=== PATIENT | male | born 1940 | race Caucasian/White ===

== ENCOUNTER 2021-02-03 14:23 | Inpatient (IN) | payer MEDICARE, OTHER ==
[~2021-02-03] VITALS: Ht 180.3 cm; Wt 75.4 kg
[~2021-02-03 14:23] MED LIST: ALBU6.7H9 INH; ALBU8.5H8 IH; ATOR40TA PO; DIGO125T PO; DOCU100C36 PO; FOLI1TAB16 PO; METO25TA20 PO; MULT-594 PO; NICO1PAT TD; OMEP40CA21 PO; RIVA10TA PO; SILV20CR13 TP; THIA100T13 PO
--- NOTE | 2021-02-03 14:33 | NUR ---
THE PATIENT [id number] HOME, SUDEN ONSET SOB 2 HOURS AGO. ALBUTEROL GIVEN WAISTBAND SETTER LOCKSTITCH. RESPIRATION REGULAR AND UNLABORED AT THIS TIME. ATTACHED TO THE MONITOR.
[2021-02-03] MEDS ORDERED: methylPREDNISolone SOD SUCC 125 MG/2ML VIAL ONE (14:50)
[2021-02-03] MEDS ORDERED: LORAZEPAM INJ 2 MG/ML VIAL ONE (14:51)
[2021-02-03] MEDS ORDERED: ALBUTEROL FS 2.5 MG/3 ML VIAL.NEB NEB ONE (15:00)
[2021-02-03] MEDS ORDERED: methylPREDNISolone SOD SUCC 125 MG/2ML VIAL IV ONE (15:00)
[2021-02-03] MEDS ORDERED: IPRATROPIUM NEB FS 0.5 MG/2.5 ML AMPUL.NEB NEB ONE (15:00)
[2021-02-03] MEDS ORDERED: LORAZEPAM INJ 2 MG/ML VIAL IV ONE (15:00)
[2021-02-03] MEDS ORDERED: ALBUTEROL FS 2.5 MG/3 ML VIAL.NEB ONE (15:13)
[2021-02-03] MEDS ORDERED: IPRATROPIUM NEB FS 0.5 MG/2.5 ML AMPUL.NEB ONE (15:13)
[2021-02-03 15:28] LABS: BASOPHILS # (AUTO) 0.1 K/uL (0.0-0.2); BASOPHILS % (AUTO) 1.1 % (0.0-2.0); EOSINOPHILS % (AUTO) 0.3 % (0.0-6.0); HEMATOCRIT 29 % (39-51); HEMOGLOBIN 9.2 g/dL (13.5-17.5); LYMPHOCYTES # (AUTO) 0.5 K/uL (0.8-4.8); LYMPHOCYTES % (AUTO) 9.3 % (20.0-44.0); MEAN CORPUSCULAR HGB CONC 32 g/dl (31.0-36.0); MEAN CORPUSCULAR VOLUME 84 fL (80-96); MONOCYTES # (AUTO) 0.5 K/uL (0.1-1.30); MONOCYTES % (AUTO) 9.2 % (2.0-12.0); NEUTROPHILS % (AUTO) 80.1 % (43.0-81.0); PLATELET COUNT (AUTO) 190 K/uL (150-450); RED BLOOD CELL COUNT(AUTO) 3.42 MIL/uL (4.5-6.0)
[2021-02-03] MEDS ORDERED: RYE1TABL PO (15:28)
[2021-02-03] MEDS ORDERED: CHOL200013 PO (15:28)
[2021-02-03] MEDS ORDERED: DULO60CA45 PO (15:28)
[2021-02-03] MEDS ORDERED: MELO-105 PO (15:28)
[2021-02-03] MEDS ORDERED: TIOT18CA3 IH (15:28)
[2021-02-03] MEDS ORDERED: SPIR25TA6 PO (15:28)
[2021-02-03] MEDS ORDERED: TRAZ-182 PO (15:28)
[2021-02-03] MEDS ORDERED: MOME13HF IH (15:28)
[2021-02-03] MEDS ORDERED: HYDR-500 PO (15:28)
[2021-02-03] MEDS ORDERED: MIDO5TAB4 PO (15:28)
[2021-02-03] MEDS ORDERED: FURO-145 PO (15:28)
[2021-02-03] MEDS ORDERED: ZINC220T4 PO (15:28)
[2021-02-03] MEDS ORDERED: ASCO100031 PO (15:28)
--- NOTE | 2021-02-03 15:30 | NUR ---
CALLED NURSING SUP FOR TELE BED.
[2021-02-03 15:53] LABS: CARBON DIOXIDE 23 mmol/L (21-32); CHLORIDE 99 mmol/L (98-107); CREATININE 1.1 mg/dL (0.6-1.3); GLUCOSE 141 mg/dL (74-106); SODIUM SERUM 135 mmol/L (136-145); UREA NITROGEN, BLOOD 12 mg/dL (7-18)
[2021-02-03 16:04] LABS: ALANINE AMINOTRANSFERASE 24 U/L (12-78); ALBUMIN 2.6 g/dL (3.4-5.0); ALKALINE PHOSPHATASE 121 U/L (46-116); ASPARTATE AMINOTRANSFERASE 41 U/L (15-37); BILIRUBIN,DIRECT 0.2 mg/dL (0.0-0.2); BILIRUBIN,TOTAL 0.7 mg/dL (0.2-1.0); TOTAL PROTEIN, SERUM 8.4 g/dL (6.4-8.2)
--- NOTE | 2021-02-03 16:28 | NUR ---
PAGED DR. HIRSCH.
[2021-02-03] MEDS ORDERED: CEFTRIAXONE 1GM BAG (ER ONLY) 1 GM/50 ML PIGGYBACK IV ONE (16:30)
[2021-02-03] MEDS ORDERED: AZITHROMYCIN 500 MG in IV D5W 250 ML IV ONE (16:30)
[2021-02-03] MEDS ORDERED: CEFTRIAXONE 1GM BAG (ER ONLY) 50 ML IV ONE (17:02)
--- NOTE | 2021-02-03 18:17 | NUR ---
COVID SWABS DONE AND SENT TO THE LAB
--- NOTE | 2021-02-03 18:17 | NUR ---
RAPID INFLUENZA SWAB DONE AND SENT TO THE LAB
[2021-02-03] MEDS ORDERED: MAG HYDROX/AL HYDROX/SIMETH 30 ML UDC PO PRN (18:30)
[2021-02-03] MEDS ORDERED: Z GUARD REMEDY 2 OZ OINT TP PRN (18:30)
[2021-02-03] MEDS ORDERED: MAGNESIUM HYDROXIDE 30 ML UDC PO PRN (18:30)
[2021-02-03] MEDS ORDERED: ONDANSETRON HCL/PF 4 MG/2 ML VIAL IVP PRN (18:30)
[2021-02-03] MEDS ORDERED: ACETAMINOPHEN 325 MG TABLET PO PRN (18:30)
--- NOTE | 2021-02-03 19:02 | NUR ---
THE PATIENT HAS POA AND COPY OF THE PAPERWORK IS IN THE CHART.
--- NOTE | 2021-02-03 20:37 | NUR ---
REUBEN FAN , [phone] POA
--- NOTE | 2021-02-03 20:49 | NUR ---
GAVE REPORT TO LOIS RENAE FOR EDNIA
[2021-02-03 21:00] VITALS: BP 144/97
--- NOTE | 2021-02-03 22:21 | NUR ---
Alyssia ABREU Notes Patient's blood sugar at 2220 was 153mg/dL. Addendum: 02/04/21 at 0301 by OC ALTMAN RN Disregard this note.
[2021-02-03] MEDS: ENOXAPARIN SODIUM 40 MG/0.4 ML DISP.SYRIN SQ SCH (23:21)
[2021-02-03] MEDS: methylPREDNISolone SOD SUCC 40 MG/ML VIAL IV SCH (23:21)
[2021-02-03] MEDS ORDERED: IPRATROPIUM NEB FS 0.5 MG/2.5 ML AMPUL.NEB NEB PRN (23:30)
[2021-02-03] MEDS ORDERED: ALBUTEROL FS 2.5 MG/3 ML VIAL.NEB NEB PRN (23:30)
[2021-02-03] MEDS: ZOLPIDEM TARTRATE 5 MG TABLET PO PRN (23:52)
[2021-02-04] VITALS (7 sets, daily range): BP systolic 107–147; BP diastolic 63–97
[2021-02-04] MEDS: IPRATROPIUM NEB FS 0.5 MG/2.5 ML AMPUL.NEB NEB SCH ×7 (00:12→23:13)
[2021-02-04] MEDS: ALBUTEROL FS 2.5 MG/3 ML VIAL.NEB NEB SCH ×4 (00:12→11:28)
[2021-02-04] MEDS ORDERED: DILTIAZEM HCL 50 MG IV IV ONE (02:00)
--- NOTE | 2021-02-04 02:30 | NUR ---
RN NOTES RECEIVED PT FROM 3 [facility] BED ACCOMPANIED BY 2 STAFF AND TRANSFERRED TO ROOM 117 #1. PT IS A/OX4; PT ON 3L OF O2 VIA NC TOLERATING WELL WITH RESPIRATIONS EVEN AND UNLABORED. COMPREHENSIVE PHYSICAL ASSESSMENT AND PATIENT CARE DONE. CALL LIGHT WITHIN REACH, SAFETY MEASURES AND ISOLATION PRECAUTION IN PLACE, WILL CONTINUE MONITOR AND ASSESS THROUGHOUT THE SHIFT. WILL CARRY OUT MD ORDERS ACCORDINGLY. BENCH PATTERNMAKER METAL MADE AWARE. Addendum: 02/04/21 at 0322 by MICHAEL WEINSTEIN RN CORRECTION PT IS ON 4L OF O2 VIA NC.
[2021-02-04] MEDS ORDERED: DILTIAZEM HCL 25 MG IV ONE ×2 (02:36→02:46)
--- NOTE | 2021-02-04 02:55 | NUR ---
RN NOTES @0253 CARDIZEM IV 5MG/1ML GIVEN ; MANUALLY ENTERED IN EMAR; PRICING MANAGER WELL AWARE. @0303 STARTED CARDIZEM DRIP IV 125MG IN 100NL NS WITH DOSE RATE OF 5MG/HR; MANUALLY ENTERED IN EMAR; PRICING MANAGER WELL AWARE. WILL CONTINUE TO MONITOR AND ASSESS THROUGHOUT THE SHIFT.
--- NOTE | 2021-02-04 03:02 | NUR ---
school supervisor Notes Patient was transferred to the [facility] unit. Patient was in no acute distress. Report was given to the [facility] Nurse Matias. CATHY Saenz was notified about the patient's new onset of red blood in the stool. CATHY saenz gave no orders. [facility] Nurse was made aware.
[2021-02-04] MEDS: DILTIAZEM HCL IV 125 MG in IV NS 0.9% 100 ML IV PRN (03:03)
--- NOTE | 2021-02-04 04:00 | NUR ---
RN NOTES NO NOTED CHANGES IN PATIENT CONDITION AT THIS TIME; NO SIGNS OF ACUTE RESPIRATORY DISTRESS. AM PATIENT CARE RENDERED. MANAGER INVESTMENT MADE AWARE. WILL CONTINUE TO MONITOR AND REASSESS FOR ANY CHANGES THROUGHOUT THE SHIFT.
[2021-02-04] MEDS: methylPREDNISolone SOD SUCC 40 MG/ML VIAL IV SCH ×3 (04:33→20:38)
[2021-02-04 07:01] LABS: BASOPHILS % (AUTO) 0.5 % (0.0-2.0); EOSINOPHILS % (AUTO) 0.1 % (0.0-6.0); HEMATOCRIT 27 % (39-51); HEMOGLOBIN 8.6 g/dL (13.5-17.5); LYMPHOCYTES # (AUTO) 0.2 K/uL (0.8-4.8); LYMPHOCYTES % (AUTO) 5.4 % (20.0-44.0); MEAN CORPUSCULAR HGB CONC 32 g/dl (31.0-36.0); MEAN CORPUSCULAR VOLUME 84 fL (80-96); MONOCYTES # (AUTO) 0.1 K/uL (0.1-1.30); MONOCYTES % (AUTO) 4.1 % (2.0-12.0); NEUTROPHILS # (AUTO) 2.6 K/uL (1.8-8.9); NEUTROPHILS % (AUTO) 89.9 % (43.0-81.0); PLATELET COUNT (AUTO) 171 K/uL (150-450); RED BLOOD CELL COUNT(AUTO) 3.18 MIL/uL (4.5-6.0); WHITE BLOOD COUNT (AUTO) 2.9 K/uL (4.3-11.0)
--- NOTE | 2021-02-04 07:01 | NUR ---
RN CLOSING NOTE: PATIENT REMAINS IN ROOM IN NO SIGNS OF RESPIRATORY DISTRESS, PATIENT STILL ON 4L OF 02 VIA NC;TOLERATING WELL SATURATING @ >92% SP02. STILL WITH ONGOING CARDIZEM DRIP @5MG/HR INFUSING WELL @ R AC#18. SAFETY MEASURES IMPLEMENTED, BED IN LOWEST POSITION, LOCKED, SIDE RAILS UP, CALL LIGHT WITHIN REACH. ALL NEEDS AND ORDERS ADDRESSED DURING THE SHIFT. IV ACCESS MAINTAINED INTACT, SECURED AND FLUSHING WELL. ALL DUE MEDS GIVEN ORDERED & SCHEDULED ; PATIENT TOLERATED WELL. PATIENT KEPT CLEAN AND COMFORTABLE WITHIN THE SHIFT. PATIENT ENDORSED TO INCOMING SHIFT RN WITH STABLE VITAL SIGN AND FOR CONTINUITY OF CARE, WILL ALSO INFORM AM SHIFT RN TO COLLECT SPECIMEN FOR OCCULT BLOOD; STOOL, SUPPLIES READY @ BEDSIDE. AM DYNAMICS AX SOLUTION ARCHITECT ALSO MADE AWARE. .
[2021-02-04] MEDS ORDERED: PANTOPRAZOLE 40 MG TABLET.DR PO SCH (07:30)
[2021-02-04 07:34] LABS: CREATININE 1.2 mg/dL (0.6-1.3); MAGNESIUM 2.3 mg/dL (1.8-2.4); PHOSPHORUS 3.4 mg/dL (2.5-4.9); POTASSIUM 4.4 mmol/L (3.5-5.1); THYROID STIMULATING HORMONE 0.659 uIU/mL (0.358-3.74)
--- NOTE | 2021-02-04 08:10 | NUR ---
RN note: Pt received alert awake oriented X 3. On 4 LPM O2 via NC, breathing distress with activity. Denies chest pain & discomfort. A-fib uncontrolled on tele monitor, Continue with cardizem drip as ordered. Ambulatory, steady gait. Safety measures observed. Encourage pt to use call light for assistance. Continue to monitor.
[2021-02-04] MEDS: PANTOPRAZOLE 40 MG VIAL IV SCH ×2 (08:27→17:24)
[2021-02-04] MEDS: NICOTINE PATCH (21MG) 21 MG PATCH.TD24 TD SCH (08:27)
[2021-02-04] MEDS ORDERED: AZITHROMYCIN 500 MG in IV D5W 250 ML IV SCH (09:00)
[2021-02-04] MEDS ORDERED: CEFTRIAXONE 1 G in IV D5W 50 ML IV SCH (09:00)
[2021-02-04] MEDS: CEFTRIAXONE 1 G in IV D5W 50 ML IV SCH (16:25)
[2021-02-04 16:39] LABS: OCCULT BLOOD STOOL POSITIVE (NEGATIVE)
[2021-02-04] MEDS: AZITHROMYCIN 500 MG in IV D5W 250 ML IV SCH (17:24)
--- NOTE | 2021-02-04 17:56 | NUR ---
RN Note: Spoke with Dr. Peter, regarding NPO status. OK to restart diet, If thoracentesis done. S/P rt thoracentesis with 1.5 l output. Pt tolerated well. Restart diet as ordered previously. Continue to monitor.
--- NOTE | 2021-02-04 19:25 | NUR ---
RN Note: Report given to stabilizing machine operator RN for continuity of care.
--- NOTE | 2021-02-04 19:30 | NUR ---
RN OPENING NOTES: RECEIVED PT A/OX4 IN BED RESTING COMFORTABLY. PATIENT IN NO S/SX OF ACUTE DISTRESS AT THIS TIME. NO SOB NOTED. PATIENT'S BREATHING IS EVEN AND UNLABORED. PATIENT IS ON 4L OF OXYGEN VIA NC; TOLERATING WELL. PATIENT ON TELE MONITORING READING SINUS HR IS @60s AT THE TIME OF RECEIVED. PATIENT ON CARDIAC DIET; TOLERATES WELL. NOTED IV SITE ON L FA #18 AND R AC#18 ; PATENT, INTACT AND FLUSHING WELL; NO S/S OF INFECTION OR INFILTRATION. PT ALSO HAS ALL SECURED AND INTACT NO SIGNS OF INFECTION. WITH ONGOING CARDIZEM DRIP @5MG/HR; INFUSING WELL. SAFETY MEASURES HAVE BEEN PROVIDED AND IMPLEMENTED. PATIENT BED ALARM IS ON. HEAD OF BED ELEVATED. BED IS LOCKED, IN LOWEST POSITION AND SIDE RAILS UP. CALL LIGHT WITHIN REACH OF THE PATIENT. APPLICABLE ISOLATION PRECAUTIONS IN PLACE. WILL CONTINUE TO MONITOR AND REASSESS FOR ANY CHANGES AND WILL CARRY OUT ANY ONGOING AND ACTIVE MD ORDER.
[2021-02-04] MEDS: LEVALBUTEROL HCL NEB 1.25 MG/0.5 ML VIAL.NEB NEB SCH (19:44)
[2021-02-04] MEDS: ENOXAPARIN SODIUM 40 MG/0.4 ML DISP.SYRIN SQ SCH (20:47)
--- NOTE | 2021-02-04 20:47 | NUR ---
RN NOTES HOLD SCHEDULED LOVENOX PER MD; COMMUNICATED WITH ONCMODE WILLIAM THAT PT HAS BEEN POSITIVE WITH STOOL OCCULT BLOOD 02/04. FAST FOOD ASSISTANT RESTAURANT MANAGER WELL AWARE.
--- NOTE | 2021-02-04 21:00 | NUR ---
RN NOTES FACILITATED INSERTION OF ADDITIONAL IV LINE/ACCESS @ R HAND #22; SECURED, INTACT AND FLUSHING WELL. WEBSPHERE ARCHITECT MADE AWARE.
[2021-02-04] MEDS: ZOLPIDEM TARTRATE 5 MG TABLET PO PRN (21:05)
--- NOTE | 2021-02-04 23:00 | NUR ---
RN NOTES NO CHANGE IN PATIENT CONDITION AT THIS TIME PATIENT VITALS STABLE, NO SIGNS OF ACUTE RESPIRATORY DISTRESS. CAPONIZER MADE AWARE. WILL CONTINUE TO MONITOR AND REASSESS FOR ANY CHANGES THROUGHOUT THE SHIFT.
[2021-02-05] VITALS: BP 114/66
[2021-02-05] MEDS ORDERED: LORAZEPAM INJ 2 MG/ML VIAL IV PRN (00:30)
--- NOTE | 2021-02-05 00:32 | NUR ---
RN NOTES NOTED PT TO HAVE INCREASED RESTLESSNESS AND ANXIETY; ONCALL MD INFORMED ALSO DISCUSSED CURRENT CONDITION PT STILL ON CARDIZEM DRIP ; SECURED ORDER FOR CARDIO CONSULT IN AM AND ATIVAN FOR ANXIETY PRN. NUT DEHYDRATOR OPERATOR MADE AWARE. WILL CARRY OUT MD ORDER . NUT DEHYDRATOR OPERATOR MADE AWARE.
--- NOTE | 2021-02-05 00:55 | NUR ---
RN NOTES RECEIVED CALL FROM REUBEN ([phone]) PROVIDED GENERAL UPDATES WITH PT. HE SAID HE WILL BE VISITING THE PT SEA, ADVISED HIM TO TALK TO HOSPITALIST IN THE MORNING TO GET MORE CONCRETE INFO ABOUT PT AND TX PLAN; WHICH HE ACKNOWLEDGED. FINE GRADE BULLDOZER OPERATOR MADE AWARE.
[2021-02-05] MEDS: LEVALBUTEROL HCL NEB 1.25 MG/0.5 ML VIAL.NEB NEB SCH ×4 (01:24→19:52)
[2021-02-05] MEDS ORDERED: BENZONATATE 100 MG CAPSULE PO PRN (01:30)
[2021-02-05] MEDS: IPRATROPIUM NEB FS 0.5 MG/2.5 ML AMPUL.NEB NEB SCH ×8 (03:37→23:37)
[2021-02-05 04:00] VITALS: BP 119/72
--- NOTE | 2021-02-05 04:00 | NUR ---
RN NOTES NO NOTED CHANGES IN PATIENT CONDITION AT THIS TIME; PATIENT VITALS STABLE, NO SIGNS OF ACUTE RESPIRATORY DISTRESS. AM PATIENT CARE RENDERED. FIELD MARKETER MADE AWARE. WILL CONTINUE TO MONITOR AND REASSESS FOR ANY CHANGES THROUGHOUT THE SHIFT.
[2021-02-05] MEDS: DILTIAZEM HCL IV 125 MG in IV NS 0.9% 100 ML IV PRN (04:48)
[2021-02-05] MEDS: methylPREDNISolone SOD SUCC 40 MG/ML VIAL IV SCH ×3 (05:13→20:27)
[2021-02-05 06:35] LABS: BASOPHILS % (AUTO) 0.4 % (0.0-2.0); HEMATOCRIT 25 % (39-51); HEMOGLOBIN 8.3 g/dL (13.5-17.5); LYMPHOCYTES # (AUTO) 0.2 K/uL (0.8-4.8); LYMPHOCYTES % (AUTO) 3.1 % (20.0-44.0); MEAN CORPUSCULAR HGB CONC 33 g/dl (31.0-36.0); MEAN CORPUSCULAR VOLUME 84 fL (80-96); MONOCYTES # (AUTO) 0.3 K/uL (0.1-1.30); MONOCYTES % (AUTO) 5.9 % (2.0-12.0); NEUTROPHILS # (AUTO) 5.4 K/uL (1.8-8.9); NEUTROPHILS % (AUTO) 90.6 % (43.0-81.0); PLATELET COUNT (AUTO) 135 K/uL (150-450); RED BLOOD CELL COUNT(AUTO) 2.99 MIL/uL (4.5-6.0); WHITE BLOOD COUNT (AUTO) 5.9 K/uL (4.3-11.0)
--- NOTE | 2021-02-05 06:57 | NUR ---
RN CLOSING NOTE: PATIENT REMAINS IN ROOM IN NO SIGNS OF RESPIRATORY DISTRESS, PATIENT STILL ON 4L OF 02 VIA NC;TOLERATING WELL SATURATING @ >94% SP02. STILL WITH ONGOING CARDIZEM DRIP @5MG/HR INFUSING WELL @ R HAND#22. SAFETY MEASURES IMPLEMENTED, BED IN LOWEST POSITION, LOCKED, SIDE RAILS UP, CALL LIGHT WITHIN REACH. ALL NEEDS AND ORDERS ADDRESSED DURING THE SHIFT. IV ACCESS MAINTAINED INTACT, SECURED AND FLUSHING WELL. ALL DUE MEDS GIVEN ORDERED & SCHEDULED ; PATIENT TOLERATED WELL. PATIENT KEPT CLEAN AND COMFORTABLE WITHIN THE SHIFT. PATIENT ENDORSED TO INCOMING SHIFT RN WITH STABLE VITAL SIGN AND FOR CONTINUITY OF CARE.
[2021-02-05 07:14] LABS: CARBON DIOXIDE 25 mmol/L (21-32); CHLORIDE 98 mmol/L (98-107); CREATININE 1.4 mg/dL (0.6-1.3); GLUCOSE 171 mg/dL (74-106); MAGNESIUM 2.3 mg/dL (1.8-2.4); PHOSPHORUS 3.9 mg/dL (2.5-4.9); POTASSIUM 4.5 mmol/L (3.5-5.1); SODIUM SERUM 133 mmol/L (136-145); UREA NITROGEN, BLOOD 28 mg/dL (7-18)
[2021-02-05 07:21] LABS: CALCIUM, SERUM 7.7 mg/dL (8.5-10.1)
[2021-02-05 08:00] VITALS: BP_SYST 117; BP_SYST 126; BP_DIAS 72; BP_DIAS 77
--- NOTE | 2021-02-05 08:00 | NUR ---
RECEIVED PT A/OX4 SITTING UP EDGE OFBED COMFORTABLY. PATIENT IN NO S/SX OF ACUTE DISTRESS AT THIS TIME. NO SOB NOTED. PATIENT'S BREATHING IS EVEN AND UNLABORED. PATIENT IS ON 4L OF OXYGEN VIA NC; TOLERATING WELL. PATIENT ON TELE MONITORING READING A FIB HR IS AT 106 AT THE TIME OF RECEIVED. PATIENT ON CARDIAC DIET; TOLERATES WELL. NOTED IV SITE ON L FA #18 AND R AC#18 ; PATENT, INTACT AND FLUSHING WELL; NO S/S OF INFECTION OR INFILTRATION. PT ALSO HAS ALL SECURED AND INTACT NO SIGNS OF INFECTION. WITH ONGOING CARDIZEM DRIP AT 5ML/HR WILL CONTINUE TO ASSSESS AND EVALUATE
[2021-02-05] MEDS: PANTOPRAZOLE 40 MG VIAL IV SCH ×2 (08:29→18:35)
[2021-02-05] MEDS: NICOTINE PATCH (21MG) 21 MG PATCH.TD24 TD SCH (08:29)
--- NOTE | 2021-02-05 09:00 | NUR ---
SEEN BY AT THIS TIME AND EXAM TO PATIENT CALL LIGHT WITH IN REACH
--- NOTE | 2021-02-05 10:27 | NUR ---
FAMILY AT BED SIDE CALL LIGHT WITH IN REACH
[2021-02-05 12:00] VITALS: BP_SYST 129; BP_DIAS 77; BP_DIAS 97
[2021-02-05] MEDS ORDERED: ALPRAZOLAM 0.25 MG TABLET PO PRN (13:00)
[2021-02-05] MEDS ORDERED: TRAZODONE 50 MG TABLET PO PRN (13:00)
--- NOTE | 2021-02-05 13:00 | NUR ---
Notified to Dr.KUZUMA stephens; US guided paracentesis will do tomorrow am
[2021-02-05] MEDS: MIDODRINE HCL (5MG) 5 MG TABLET PO SCH ×2 (13:12→18:38)
--- NOTE | 2021-02-05 13:30 | NUR ---
stated that iok to do US paracentesis tomorrow morning
[2021-02-05 16:00] VITALS: BP 118/73
--- NOTE | 2021-02-05 16:00 | NUR ---
vitals taken and recorded will continue to assess and evaluate call light with in reach
--- NOTE | 2021-02-05 18:00 | NUR ---
condtion unchanged from previous assessment will continue to assess and evaluatae cardizem drip at 5ml /hr telemetry shows a fib at 96 call light with in reach
[2021-02-05] MEDS: DIGOXIN 0.125 MG TABLET PO SCH (18:34)
[2021-02-05] MEDS: AZITHROMYCIN 500 MG in IV D5W 250 ML IV SCH (18:39)
[2021-02-05] MEDS: CEFTRIAXONE 1 G in IV D5W 50 ML IV SCH (18:39)
--- NOTE | 2021-02-05 19:00 | NUR ---
RN NOTE RECEIVED PATIENT IN BED SITTING UP,ALERT ORIENTED X4 ON 7L OXYGEN O2:92% ON CARDIZEM DRIP AT 5ML HR 86 A-FIB CONTROLLED,IV SITE IS ON RIGHT AC AND LEFT FOREARM INTACT PATENT,AMBULATORY WITH ASSIST CONTINENT TO BOWEL/BLADDER,BED IN LOW POSITION AND LOCKED,BED ALARM IS ON,CALL LIGHT WITHIN REACH,SAFETY MEASURE IMPLEMENT CONTINUE TO MONITOR.
[2021-02-05] MEDS: HYDROCODONE/APAP 5/325MG TABLET PO PRN (19:53)
[2021-02-05] MEDS: METOPROLOL TARTRATE 25 MG TABLET PO SCH (20:26)
[2021-02-05 20:30] VITALS: BP 124/70
[2021-02-05] MEDS: ENOXAPARIN SODIUM 40 MG/0.4 ML DISP.SYRIN SQ SCH (20:30)
[2021-02-05] MEDS: ATORVASTATIN 40 MG TABLET PO SCH (21:15)
[2021-02-05] MEDS: hydrOXYzine PAMOATE 25 MG CAPSULE PO SCH (21:15)
[2021-02-05] MEDS: ZOLPIDEM TARTRATE 5 MG TABLET PO PRN (23:36)
[2021-02-06] VITALS: BP 92/61
[2021-02-06] MEDS: IPRATROPIUM NEB FS 0.5 MG/2.5 ML AMPUL.NEB NEB SCH ×6 (01:30→20:52)
[2021-02-06] MEDS: LEVALBUTEROL HCL NEB 1.25 MG/0.5 ML VIAL.NEB NEB SCH ×4 (01:44→20:52)
--- NOTE | 2021-02-06 02:06 | NUR ---
RN NOTE PATIENT BP IS 92/61 HELD CARDIZEM DRIP 5ML,NOTIFIED DR SIMIN BECK HE ORDERED DISCONTINUE CARDIZEM,NOTED AND CARRIED OUT.
[2021-02-06 04:00] VITALS: BP 108/65
[2021-02-06] MEDS: methylPREDNISolone SOD SUCC 40 MG/ML VIAL IV SCH ×3 (04:23→20:26)
--- NOTE | 2021-02-06 06:28 | NUR ---
RN NOTE PATIENT REMAINS ON ALERT ORIENTED X4 VERBALLY RESPONSIVE ON 7L OXYGEN O2:92% IV SITE IS ON RIGHT UPPER ARM MIDLINE AND RIGHT HAND INTACT PATENT AMBULATORY WITH ASSIST ALL DUE MEDS GIVEN MD ORDERED KEPT CLEAN AND DRY ALL THE TIME ALL NEED MET ENDORSE NEXT COMING SHIFT FOR CONTINUATION OF CARE.
[2021-02-06 06:46] LABS: HEMATOCRIT 25 % (39-51); HEMOGLOBIN 7.9 g/dL (13.5-17.5); LYMPHOCYTES # (AUTO) 0.2 K/uL (0.8-4.8); LYMPHOCYTES % (AUTO) 4.5 % (20.0-44.0); MEAN CORPUSCULAR HGB CONC 32 g/dl (31.0-36.0); MEAN CORPUSCULAR VOLUME 84 fL (80-96); MONOCYTES # (AUTO) 0.2 K/uL (0.1-1.30); MONOCYTES % (AUTO) 5.8 % (2.0-12.0); NEUTROPHILS # (AUTO) 3.8 K/uL (1.8-8.9); NEUTROPHILS % (AUTO) 89.7 % (43.0-81.0); PLATELET COUNT (AUTO) 128 K/uL (150-450); RED BLOOD CELL COUNT(AUTO) 2.91 MIL/uL (4.5-6.0); WHITE BLOOD COUNT (AUTO) 4.2 K/uL (4.3-11.0)
--- NOTE | 2021-02-06 07:30 | NUR ---
TD RN NOTE RECEIVED PATIENT IN BED SITTING UP,ALERT ORIENTED X4 ON 6L OXYGEN O2:92% SR HR 86, IV SITE IS ON RIGHT AC AND LEFT FOREARM INTACT PATENT,AMBULATORY WITH ASSIST CONTINENT TO BOWEL/BLADDER,BED IN LOW POSITION AND LOCKED,BED ALARM IS ON,CALL LIGHT WITHIN REACH,SAFETY MEASURE IMPLEMENT CONTINUE TO MONITOR.
[2021-02-06 07:34] LABS: CALCIUM, SERUM 7.3 mg/dL (8.5-10.1); CARBON DIOXIDE 27 mmol/L (21-32); CHLORIDE 97 mmol/L (98-107); CREATININE 1.6 mg/dL (0.6-1.3); GLUCOSE 186 mg/dL (74-106); MAGNESIUM 2.3 mg/dL (1.8-2.4); PHOSPHORUS 4.5 mg/dL (2.5-4.9); SODIUM SERUM 129 mmol/L (136-145); UREA NITROGEN, BLOOD 42 mg/dL (7-18)
[2021-02-06 08:00] VITALS: BP 128/85
[2021-02-06] MEDS: PANTOPRAZOLE 40 MG TABLET.DR PO SCH (08:17)
[2021-02-06] MEDS ORDERED: DIGOXIN 0.125 MG TABLET PO SCH (09:00)
[2021-02-06] MEDS ORDERED: [UNRECOGNIZED DRUG - MIXTURE] PO SCH (09:00)
[2021-02-06] MEDS: MIDODRINE HCL (5MG) 5 MG TABLET PO SCH ×3 (09:20→16:30)
[2021-02-06] MEDS: DULOXETINE HCL 30 MG CAPSULE.DR PO SCH (09:20)
[2021-02-06] MEDS: ZINC SULFATE 220 MG CAPSULE PO SCH (09:20)
[2021-02-06] MEDS: NICOTINE PATCH (21MG) 21 MG PATCH.TD24 TD SCH (09:20)
[2021-02-06] MEDS: METOPROLOL TARTRATE 25 MG TABLET PO SCH ×2 (09:21→20:26)
[2021-02-06] MEDS: DIGOXIN 0.125 MG TABLET PO SCH (09:21)
[2021-02-06] MEDS: FUROSEMIDE 20 MG TABLET PO SCH (09:21)
[2021-02-06] MEDS: CHOLECALCIFEROL 1,000 UNIT TABLET (VIT D3) PO SCH (09:22)
[2021-02-06] MEDS: ASCORBIC ACID 500 MG TABLET PO SCH (09:24)
[2021-02-06] MEDS: FLUTICASONE/VILANTEROL 1 EACH BLST.W.DEV IH SCH (09:24)
--- NOTE | 2021-02-06 09:28 | NUR ---
WOUND CARE CONSULT: PT PRESENTS WITH MULTIPLE DRY SCABS AND OPEN WOUND TO RT FOOT WITHOUT DRAINAGE, PRESENT ON ADMISSION. RECOMMEND DPM CONSULT. DR FIGUEROA NOTIFIED. PT AMBULATES WITH ASSISTANCE TO BATHROOM. IN AGREEMENT WITH PLAN OF CARE. Addendum: 02/06/21 at 0940 by JAMEY RIVERA WNDNU CORRECTION: LEFT FOOT WOUND.
--- NOTE | 2021-02-06 09:30 | NUR ---
RN NOTES DUE MEDS GIVEN
[2021-02-06 12:00] VITALS: BP 135/84
--- NOTE | 2021-02-06 14:15 | NUR ---
Wildlife Biologist consult: shipping services sales representative consult requested to discuss plan of care. Patient is a 80-year-old, male. SW met with patient at his bedside in the med-surg unit. Patient was alert and oriented x4. Patient was seated upright and was eating his lunch. Per chart, patient was brought in by ambulance from home on 02/03/21 for hypoxia. [place] [address] [place] [id number]; [phone]. Patient is currently living in [address] housing. Patient reported that he has a medical DPOA, Volodymyr Fields, . Patient provided SW with consent to speak to patient's DPOA. Patient stated that he is independent with his ADL's and only requires some "assistance with carrying groceries or taking out the garbage." Patient stated that his DPOAVolodymyr assists him and provides him with transportation. SW asked patient if he is ambulatory and patient stated that he uses a cane. SW asked patient about his history of falls and patient stated "I just tripped but I usually don't fall." Patient denied a history of mental illness. Patient reported no recent substance use. Patient denied suicidal or homicidal ideation. SW discussed discharge plans with the patient. Patient stated that he will return to his prior living arrangement at home and will be provided transportation by Volodymyr HIGGINS. Patient stated that he is open to homehealth and ARU if it is recommended. SW notified special education case manager, Misti. DEVORAH offered the patient senior resources. Patient accepted the resources and thanked DEVORAH. PLAN: Patient plans to return to his prior living arrangement at home. No further SS intervention at this time, however, DEVORAH will remain available as needed. RESOURCES: ABUSE PREVENTION: ELDER ABUSE HOTLINE (11/02) ADULT PROTECTIVE SERVICES HOTLINE LONG-TERM CARE [facility] Region AREA ON AGING (HOTLINE) ADULT DAY HEALTH CARE CARE CENTERS: Private pay or Medi-eli funded adult day care [facility] , [facility] , [facility] , [facility] Day Health Care , [facility] Day [facility] Care , [facility] , [facility] , [facility] , [place] ALZHEIMERS DISEASE/DEMENTIA: Alzheimers Association Helpline [facility] Chapter www.alz.org/[facility] Department of Aging www.lacity.org Family Caregiver [place] www.caregiver.org [place] Caregiver Resources Center/Family Support www.[facility].org CANCER RESOURCES: Citizen Of [place] Cancer Society www.cancer.org Cancer Support Community www.CancerSupportVvsb.org: CancerCare www.cancercare.org [facility] Cancer Support [place] www.[facility].org [facility] HEALTH ASSOCIATIONS: AARP www.aarp.org ALS Association (ask for Yumiko) www.als.org Citizen Of [place] Diabetes Association www.diabetes.org Citizen Of [place] Heart Association www.heart.org Citizen Of [place] Lung Association www.lungusa.org Citizen Of [place] Parkinson Disease Association www.apdaparkinson.org Citizen Of [place] Silverado Resort , www.redcross.org Arthritis Foundation www.arthritis.org Crohns & Colitis Foundation of Citizen Of [place] www.ccfa.org/chapters/michoacano National Multiple Sclerosis Society www.nationalmssociety.org Myasthenia Gravis Foundation www.myasthenia-ca.org National Stroke Association www.stroke.org CONSERVATORSHIP & GUARDIANSHIP: AARP Molly Laurent Legal Services Center for Health Care Rights Eldercare Information and Referral Software Verification Engineer [facility]: [facility] Referral Service [facility] Legal Services Office of the Public Guardian [place] EYESIGHT DISORDER RESOURCES: Citizen Of [place] Macular Degeneration Foundation [facility] www.[facility].org GRIEF AND BEREAVEMENT RESOURCES: The [place] , [facility] THE HOPE Connection , [facility] , [place] HEARING DISORDER RESOURCES: [place] Telephone Access Program Deaf and Disabled Telecommunications Program www.ddtp.cpu.ca.gov HearRx Hearing Centers ([place]) Better Hearing Systems , [place] GLAD ([facility] Agency on Deafness) V/ TTY; Top Precipitator Operator Helper , [facility] Hearing [facility] -low income hearing aid assistance www.[facility] k[facility] campushearingfoundation.org [facility] Hearing Care , [place] HELP AT HOME CAREGIVER SUPPORT: In Home Support Services (Must have Medi-Eli to be eligible) *Ask for a list of agencies that provide services to assist with care in the home. Local Senior Centers also have listings of care providers. HOME SAFETY MODIFICATIONS AND EQUIPMENT: Senior centers have additional referrals. [place] Telekenex and [place] Feixiangren Information Technology Investment Dept. Handyworker Program (low income) or Visit http://hcidla.lacity.org/xgj-hnwkjs-vl for more information National Seating and Mobility and/or ; Forever Active www.foreverViralGainsmed.Beebrite Stay Home Safe www.Stayhomesafe.com LIFE ALERT RESPONSE SYSTEM: Urgent.ly Services 686-935-8913 www. Chroma Energy Life Alert 288-698-4424 www.Taplister Life Station 774-163-5268 www.Constellation Research.Beebrite Safe Return 887-164-7143 www.alz.or/safereturn Cell Phones for Seniors www.Egr Renovation MEALS AND FOOD PROGRAMS: [employer] Meals on Wheels [phone] [place] Meals on Wheels [phone] [facility] [phone] [place] to the Homebound [phone] [place] to the Homebound [phone] [facility] to the Homebound [phone] [facility] to the Homebound [phone] [facility] [phone] [facility] 430-702-0737 ONE Generation [phone] [facility] [phone] [facility] [phone] Meals on Wheels [phone] For all ages: $6.85/ meal w side. Delivered M-F from 10 am-1pm. Application and payment is done over the phone. Frozen meals available for weekends. Emergency Food [facility] [phone] [facility] Wildlife Biologist [phone] [facility] [phone] Chip [facility]- Brown bag lunches [phone] [facility] [phone] MEAL/GROCERY DELIVERY PROGRAMS: [place]ello [facility] Gourmet Meals [phone]- [facility] [phone]- [facility] Magic Kitchen [phone] Moms Meals [phone] (ask [place] for Discount Select grocery stores may provide delivery. MEDICAL INSURANCE SUPPORT SERVICES: Center for Health Care Rights [phone] Health Insurance Counseling/Advocacy Programs (HICAP)-Must have Medicare. Offers counseling for Medi-Eli eligibility 782-220-4622 Department of Public Wildlife Biologist 425-569-6273 www.[facility].ca.gov Medicare 280-737-1584 www.socialsecurity.org Social Security [phone] SENIOR ACTIVITY PROGRAMS: *Contact a local senior center, adult school, recreation facility or community college for education, fitness, recreation, and social programs. Aquatic Therapy and Adapted Exercise programs through [facility] [phone] Encore at [facility] [phone] www.[facility]/encore U- Senior Friends [phone] [place] Senior Programs [phone] www.oasisnet.org Suddenly 65 www.xijsbpky10.com SENIOR CENTERS: [facility] [phone] [facility] [phone] [facility] [phone] [facility] [phone] [facility] [phone] [facility] [phone] [facility] [phone] [facility] [phone] One Generation, [facility] [phone] [facility] [phone] [facility] [phone] [facility] [phone] [facility] [phone] TRANSPORTATION: Local [facility] Centers may have applications for transportation programs and additional resources. ACCESS Services [phone] Transportation for seniors and disabled persons 7 days a week requiring 254 hr. advance reservation. Must apply and register for program franky eligible. Fresh ! RIDE [phone] or [phone] Transportation for seniors and persons with ADA card/metro disabled card in the [facility] [place]. M-F only. Must register for services. ONE GENERATION [phone] Serves 65 years + in conjunction with city ride program. Must be registered with both programs. A to B Transport [phone] Provides wheelchair/gurney van service. Adult Medical Transport [phone] Accepts Medi-eli with prior authorization. Care Van [phone] Provides wheelchair Transport. [facility] Wide Transportation [phone] Provides gurney service Gentle [facility] [phone] Gurney Transport. [facility] Town Transportation [phone] wheelchair & gurney transport [facility] Transportation [phone] wheelchair & gurney transport [place] Non-Emergency Transport [phone] wheelchair & gurney transport [facility] Living [place] [phone] Short Term Transportation primarily for adults with disabilities on social security income. Nominal fee may apply and a reservation is required. Whiteyboard Cab [phone] or [phone] [facility] [phone] [place] [address] Services [phone] For additional programs & services VETERANS RESOURCES: Submissions for Aid and Attendance should be done directly to Federal VA office locatd at : [address] [address] X110 National Caregiver Support Line [phone] Eli Cortes Veterans Services Field Office [phone] [place] Department of Affairs [phone] Pension Information [phone]
--- NOTE | 2021-02-06 14:18 | NUR ---
Chemical Maker note: terrazzo worker contacted patient's medical DPOA, Volodymyr Fields, . Volodymyr stated that he actively supports the patient and provides him with transportation as needed. Volodymyr stated that the patient is able to take care of himself and only requires IHSS for light cleaning or other household tasks. Volodymyr does not feel that the patient requires 24-hour assistance. Volodymyr stated that the patient has been having some trouble with his short-term memory but reported that his memory loss is nothing of concern at this time. Volodymyr stated that he takes the patient for his appointments with the patient's PCP and the patient visits his PCP every month. Volodymyr stated that he will provide transportation for the patient at the time of discharge.
[2021-02-06 16:00] VITALS: BP 145/85
[2021-02-06] MEDS: CEFTRIAXONE 1 G in IV D5W 50 ML IV SCH (16:34)
[2021-02-06] MEDS: AZITHROMYCIN 500 MG in IV D5W 250 ML IV SCH (17:30)
--- NOTE | 2021-02-06 18:29 | NUR ---
RN NOTES ALL NEEDS MET AT THIS TIME. PT RESTING COMFORTABLY. S/P PARACENTESIS EARLIER WITH 2.6L OUTPUT. ON 7L SIMPLE MASK, SATTING 92-94%. NOT IN ANY DISTRESS. SAFETY MEASURES IN PLACE. WILL ENDORSE TO NEXT SHIFT FOR DENIA.
--- NOTE | 2021-02-06 19:10 | NUR ---
RN NOTE RECEIVED PATIENT IN BED SITTING ALERT ORIENTED VERBALLY RESPONSIVE ON 7L OXYGEN O2:93% IV SITE RIGHT UPPER ARM SWELLING AND PATIENT STATES HAS PAIN,REMOVED AND CLEAN WITH NS AND PAT DRY AND APPLY DRESSING ON IT,IV SITE ON RIGHT HAND INTACT PATENT,PATIENT IS AMBULATORY WITH ASSIST,CONTINENT TO BOWEL/BLADDER,CALL LIGHT WITHIN REACH,BED IN LOW POSITION AND LOCKED CONTINUE TO MONITOR.
[2021-02-06 20:00] VITALS: BP 149/71
[2021-02-06] MEDS: ENOXAPARIN SODIUM 40 MG/0.4 ML DISP.SYRIN SQ SCH (20:29)
[2021-02-06] MEDS: hydrOXYzine PAMOATE 25 MG CAPSULE PO SCH (21:10)
[2021-02-06] MEDS: ATORVASTATIN 40 MG TABLET PO SCH (21:10)
[2021-02-06] MEDS: ZOLPIDEM TARTRATE 5 MG TABLET PO PRN (23:32)
[2021-02-07] VITALS: BP 130/83
[2021-02-07] MEDS: LEVALBUTEROL HCL NEB 1.25 MG/0.5 ML VIAL.NEB NEB SCH ×4 (01:30→20:35)
[2021-02-07] MEDS: IPRATROPIUM NEB FS 0.5 MG/2.5 ML AMPUL.NEB NEB SCH ×4 (01:30→20:35)
[2021-02-07 04:00] VITALS: BP 102/67
[2021-02-07] MEDS: methylPREDNISolone SOD SUCC 40 MG/ML VIAL IV SCH (04:07)
[2021-02-07 06:47] LABS: BASOPHILS % (AUTO) 0.2 % (0.0-2.0); HEMATOCRIT 25 % (39-51); LYMPHOCYTES # (AUTO) 0.1 K/uL (0.8-4.8); LYMPHOCYTES % (AUTO) 4.9 % (20.0-44.0); MEAN CORPUSCULAR HGB CONC 33 g/dl (31.0-36.0); MEAN CORPUSCULAR VOLUME 84 fL (80-96); MONOCYTES # (AUTO) 0.2 K/uL (0.1-1.30); NEUTROPHILS # (AUTO) 2.5 K/uL (1.8-8.9); NEUTROPHILS % (AUTO) 87.9 % (43.0-81.0); PLATELET COUNT (AUTO) 97 K/uL (150-450); RED BLOOD CELL COUNT(AUTO) 2.93 MIL/uL (4.5-6.0); WHITE BLOOD COUNT (AUTO) 2.8 K/uL (4.3-11.0)
--- NOTE | 2021-02-07 07:02 | NUR ---
RN NOTE PATIENT REMAINS ON ALERT ORIENTED VERBALLY RESPONSIVE MON 7L OXYGEN O2:96% NO SOB NOT ACUTE DISTRESS NOTED,ALL DUE MEDS GIVEN MD ORDERED KEPT CLEAN AND DRY ALL THE TIME,KEPT COMFORTABLE ALL NEEDS MET ENDORSE NEXT COMING SHIFT FOR CONTINUATION OF CARE.
--- NOTE | 2021-02-07 07:30 | NUR ---
RN OPENINGN NOTE PT A.Ox4 IN BED SEMIFOWLER'S BREATHING NC 7L, NO S/S OF RESP DISTRESS OR SOB, BREATHING EVEN AND UNLABORED. PT RFA #22 IV ACCESS, FLUSHED AND PATENT. PT SACRAL SCAR NOTED. PT DENIES PAIN. PT CONTROLLED A-FIB ON MONITOR HR 70s. ALL OPT SAFETY PRECAUTIONS IN PLACE, WILL CONT TO MONITOR
[2021-02-07 07:33] LABS: CALCIUM, SERUM 7.2 mg/dL (8.5-10.1); CREATININE 1.3 mg/dL (0.6-1.3); MAGNESIUM 2.3 mg/dL (1.8-2.4); PHOSPHORUS 3.3 mg/dL (2.5-4.9); POTASSIUM 4.1 mmol/L (3.5-5.1)
[2021-02-07 08:00] VITALS: BP_SYST 118; BP_SYST 122; BP_DIAS 64; BP_DIAS 77
[2021-02-07] MEDS: MIDODRINE HCL (5MG) 5 MG TABLET PO SCH ×3 (09:00→17:00)
[2021-02-07] MEDS: ASCORBIC ACID 500 MG TABLET PO SCH (09:14)
[2021-02-07] MEDS: DULOXETINE HCL 30 MG CAPSULE.DR PO SCH (09:14)
[2021-02-07] MEDS: DIGOXIN 0.125 MG TABLET PO SCH (09:15)
[2021-02-07] MEDS: NICOTINE PATCH (21MG) 21 MG PATCH.TD24 TD SCH (09:16)
[2021-02-07] MEDS: FUROSEMIDE 20 MG TABLET PO SCH (09:16)
[2021-02-07] MEDS: ZINC SULFATE 220 MG CAPSULE PO SCH (09:16)
[2021-02-07] MEDS: METOPROLOL TARTRATE 25 MG TABLET PO SCH ×2 (09:16→21:00)
[2021-02-07] MEDS: CHOLECALCIFEROL 1,000 UNIT TABLET (VIT D3) PO SCH (09:17)
[2021-02-07] MEDS: FLUTICASONE/VILANTEROL 1 EACH BLST.W.DEV IH SCH (09:18)
[2021-02-07] MEDS: PANTOPRAZOLE 40 MG TABLET.DR PO SCH (09:18)
[2021-02-07 12:00] VITALS: BP 118/64
--- NOTE | 2021-02-07 12:55 | NUR ---
TEXTED DR. DEXTER FOR MRI APPROVAL.
[2021-02-07] MEDS: SPIRONOLACTONE 25 MG TABLET PO SCH (12:57)
[2021-02-07 13:51] LABS: IRON, SERUM 13 ug/dl (50-175); TOTAL IRON BINDING CAPACITY 233 ug/dl (250-450)
[2021-02-07 13:55] LABS: FERRITIN 46 ng/mL (8-388)
[2021-02-07] MEDS: CEFTRIAXONE 1 G in IV D5W 50 ML IV SCH (15:34)
[2021-02-07] MEDS: AZITHROMYCIN 500 MG in IV D5W 250 ML IV SCH (16:51)
[2021-02-07 17:17] VITALS: BP 118/64
--- NOTE | 2021-02-07 18:25 | NUR ---
RN NOTE POWER OF TURN SUPERVISOR REBUEN FAN , DOES NOT THINK IT IS NECESSARY TO GET ANY CT IMAGING THAT CATHY RANDOLPH HAS REQUESTED FROM [facility] STATING THAT HE JUST WANTS " [facility] TO TAKE CARE OF 'PT'S' PULMONARY ISSUES AND THAT [facility] HAS A TEAM READY TO OPERATE ON 'PT' WHEN HE IS CLEARED." BOTH PT AND REUBEN CONSENTED TO THE MRI OF PELVIS W/WO CONTRAST. REUBEN ALSO WOULD LIKE TO BE PRESENT WHEN THE DELIVERY CREW MEMBER MAKES ROUNDS WITH THE PT TOMORROW 02/08/21 Addendum: 02/07/21 at 1842 by LORRI LOZANO RN CATHY RANDOLPH, NOTIFIED
--- NOTE | 2021-02-07 19:00 | NUR ---
RN CLOSING NOTE NO CHANGES TO PT DURING SHIFT, PT STABLE, DENIA ENDORSED TO RN
--- NOTE | 2021-02-07 19:05 | NUR ---
RECEIVED PT A/OX4 SITTING UP EDGE OF BED COMFORTABLY. PATIENT IN NO S/SX OF ACUTE DISTRESS AT THIS TIME. NO SOB NOTED. PATIENT'S BREATHING IS EVEN AND UNLABORED. PATIENT IS ON 6L OF OXYGEN VIA NC; TOLERATING WELL. PATIENT ON TELE MONITORING READING A FIB HR IS AT 90 AT THE TIME OF RECEIVED. PATIENT ON CARDIAC DIET; TOLERATES WELL. NOTED IV SITE ON L FA #18 PATENT, INTACT AND FLUSHING WELL; NO S/S OF INFECTION OR INFILTRATION. PT ALSO HAS ALL SECURED AND INTACT NO SIGNS OF INFECTION. BED ON LOWEST POSITION AND LOCKED SIDE RAILS UP X2 CALL LIGHT WITHIN REACH WILL CONT TO MONITOR
--- NOTE | 2021-02-07 19:37 | NUR ---
RN NOTE SHEARER SCREEN MEASURER AND TRIMMER TOMASA COORNA CALL POA FOR PT TO DISCUSS RELEASE OF [facility] IMAGING RESULTS
[2021-02-07 20:00] VITALS: BP 94/57
[2021-02-07] MEDS: ATORVASTATIN 40 MG TABLET PO SCH (21:07)
[2021-02-07] MEDS: hydrOXYzine PAMOATE 25 MG CAPSULE PO SCH (21:07)
[2021-02-07] MEDS: ENOXAPARIN SODIUM 40 MG/0.4 ML DISP.SYRIN SQ SCH (21:08)
[2021-02-07] MEDS: ZOLPIDEM TARTRATE 5 MG TABLET PO PRN (22:26)
[2021-02-08] VITALS (7 sets, daily range): BP systolic 97–142; BP diastolic 54–90
[2021-02-08] MEDS: IPRATROPIUM NEB FS 0.5 MG/2.5 ML AMPUL.NEB NEB SCH ×4 (01:30→20:06)
[2021-02-08] MEDS: LEVALBUTEROL HCL NEB 1.25 MG/0.5 ML VIAL.NEB NEB SCH ×4 (01:30→20:06)
--- NOTE | 2021-02-08 06:39 | NUR ---
BED SLEEPING ON BED EASY TO WAKE UP, TELE MONITOR STILL READS AFIB CONTROLLED 89'S, NO SIGN OF RESPIRATORY DISTRESS STILL ON O2 6L VIA NC SPO2 95%, NO SIGNIFICANT CHANGES ON CONDITION NOTED, ALL NEEDS ATTENDED, BED ON LOWEST POSITION AND LOCKED CALL LIGHT WITHIN REACH WILL ENDORSED TO AM SHIFT NURSE
--- NOTE | 2021-02-08 07:00 | NUR ---
RN NOTE RECEIVED PT ON BED A/Ox4 , ON 6L O2 N/C , NO SOB NOTED, ON TELE A.FIB HR IN 80'S , RFA IV ACCESS, FLUSHED AND PATENT. SR UP x3, CALL LIGHT WITHIN EASY REACH, BED LOCKED AND IN LOWEST POSITION, CONTINUE TO MONITOR .
[2021-02-08 07:07] LABS: IMMUNOGLOBULIN A, SERUM 599 mg/dL (61-437); IMMUNOGLOBULIN G, SERUM 2093 mg/dL (603-1613); IMMUNOGLOBULIN M, SERUM 103 mg/dL (15-143)
[2021-02-08] MEDS: PANTOPRAZOLE 40 MG TABLET.DR PO SCH (08:21)
[2021-02-08] MEDS: ZINC SULFATE 220 MG CAPSULE PO SCH (08:23)
[2021-02-08] MEDS: METOPROLOL TARTRATE 25 MG TABLET PO SCH ×2 (08:23→22:22)
[2021-02-08] MEDS: DULOXETINE HCL 30 MG CAPSULE.DR PO SCH (08:23)
[2021-02-08] MEDS: ASCORBIC ACID 500 MG TABLET PO SCH (08:23)
[2021-02-08] MEDS: CHOLECALCIFEROL 1,000 UNIT TABLET (VIT D3) PO SCH (08:23)
[2021-02-08] MEDS: SPIRONOLACTONE 25 MG TABLET PO SCH (08:23)
[2021-02-08] MEDS: DIGOXIN 0.125 MG TABLET PO SCH (08:24)
[2021-02-08] MEDS: FUROSEMIDE 20 MG TABLET PO SCH (08:24)
[2021-02-08] MEDS: NICOTINE PATCH (21MG) 21 MG PATCH.TD24 TD SCH (08:24)
[2021-02-08] MEDS: MIDODRINE HCL (5MG) 5 MG TABLET PO SCH ×3 (08:24→16:20)
[2021-02-08] MEDS: FLUTICASONE/VILANTEROL 1 EACH BLST.W.DEV IH SCH (08:25)
[2021-02-08 09:07] LABS: *SPE A/G RATIO 0.6 (0.7-1.7); *SPE ALBUMIN 2.5 g/dL (2.9-4.4); *SPE ALPHA-1-GLOBULIN 0.3 g/dL (0.0-0.4); *SPE ALPHA-2-GLOBULIN 0.6 g/dL (0.4-1.0); *SPE M-SPIKE Not Observed g/dL (Not Observed); *SPEGAMMA GLOBULIN 2.2 g/dL (0.4-1.8)
[2021-02-08 12:15] LABS: BASOPHILS % (AUTO) 0.2 % (0.0-2.0); HEMATOCRIT 28 % (39-51); LYMPHOCYTES # (AUTO) 0.3 K/uL (0.8-4.8); LYMPHOCYTES % (AUTO) 6.9 % (20.0-44.0); MEAN CORPUSCULAR HGB CONC 33 g/dl (31.0-36.0); MEAN CORPUSCULAR VOLUME 85 fL (80-96); MONOCYTES # (AUTO) 0.4 K/uL (0.1-1.30); MONOCYTES % (AUTO) 10.1 % (2.0-12.0); NEUTROPHILS # (AUTO) 3.3 K/uL (1.8-8.9); NEUTROPHILS % (AUTO) 82.8 % (43.0-81.0); PLATELET COUNT (AUTO) 114 K/uL (150-450); RED BLOOD CELL COUNT(AUTO) 3.25 MIL/uL (4.5-6.0)
--- NOTE | 2021-02-08 13:00 | NUR ---
RN NOTES PT OUT OF BED TO BATHROOM , TOLERATING WELL, O2 SAT WNL, CONTINUE TO MONITOR.
[2021-02-08] MEDS: SOD FERRIC GLUC 125 MG in IV NS 0.9% 100 ML IV SCH (14:16)
[2021-02-08] MEDS: CEFTRIAXONE 1 G in IV D5W 50 ML IV SCH (15:37)
[2021-02-08] MEDS: AZITHROMYCIN 500 MG in IV D5W 250 ML IV SCH (16:20)
--- NOTE | 2021-02-08 17:00 | NUR ---
RN NOTES IMAGINE REPORT RECEIVED VIA FAX, DR GIRON NOTIFED. MRI OF ABD AND PELVIS NEED TO BE REPEATED IN AM PER DR GIRON ORDER.
--- NOTE | 2021-02-08 18:24 | NUR ---
RN NOTES PT ON 4L O2 N/C , O2 SAT WNL, NO SIGNIFICANT CHANGES NOTED ON THIS SHIFT , WILL ENDOSE TO SEAT COVERER NURSE FOR CONTINUITY OF CARE
--- NOTE | 2021-02-08 19:26 | NUR ---
RN NOTE RECEIVED PT ALERT AND ORIENTED X 4. NOT IN ANY DISTRESS, DENIES ANY PAIN AT THIS TIME. ON O2 AT 4L, DENIES SOB. IV ON RFA PATENT AND INTAC, FLUSHES WELL. ON TELE MONITORING SHOWS AFIB CONTROLLED WITH HR AT 80. ALL SAFETY IN PLACE. CALL LIGHT WITHIN REACH.
--- NOTE | 2021-02-08 20:05 | NUR ---
RN NOTE PT GOING TO ROOM 312-1. REPORT GIVEN TO NURY.
--- NOTE | 2021-02-08 20:40 | NUR ---
RN NOTE PT TRANSFERRED TO 312. NO DISTRESS NOTED. PT NURSE NURY AT BEDSIDE.
--- NOTE | 2021-02-08 21:55 | NUR ---
SPARK PLUG TESTER OPENING NOTES: RECEIVED PATIENT VIA GURNEY FROM [facility], A/OX4, NO COMPLAIN OF PAIN AND DISCOMFORT AT THIS TIME, BED IN LOW POSITION, CALL LIGHTS WITHIN REACH, ON TELE MONITORING WITH READING OF A FIB CONTROLLED, WITH OCCASIONAL OVC, HR-90, WITH RFA #18, WITH SCHEDYULE CT CHEST W/O CONTRAST AND MRI IN AM WITH OR WITHOUT CONTRAST, NPO POST MIDNIGHT, NO SKIN ISSUES NOTED, ALL NEEDS MET, KEPT CLEAN AND DRY, WILL CONTINUE TO MONITOR.
[2021-02-08] MEDS: ENOXAPARIN SODIUM 40 MG/0.4 ML DISP.SYRIN SQ SCH (22:26)
[2021-02-08] MEDS ORDERED: hydrOXYzine PAMOATE 25 MG CAPSULE ONE (22:34)
[2021-02-08] MEDS: hydrOXYzine PAMOATE 25 MG CAPSULE PO SCH (22:36)
[2021-02-09] VITALS: BP_SYST 115; BP_SYST 121; BP_DIAS 67; BP_DIAS 78
--- NOTE | 2021-02-09 00:27 | NUR ---
MS RN NOTES: PATIENT HAS VISTARIL 25 MG GIVEN ONCE AT 2000 MEDICATION TAKEN AT [facility] 2234 SCHEDULE NOT GIVEN.
[2021-02-09] MEDS: IPRATROPIUM NEB FS 0.5 MG/2.5 ML AMPUL.NEB NEB SCH ×4 (01:39→20:04)
[2021-02-09] MEDS: LEVALBUTEROL HCL NEB 1.25 MG/0.5 ML VIAL.NEB NEB SCH ×4 (01:39→20:04)
[2021-02-09 04:00] VITALS: BP 126/73
[2021-02-09 06:23] LABS: BASOPHILS % (AUTO) 0.6 % (0.0-2.0); EOSINOPHILS % (AUTO) 1.9 % (0.0-6.0); HEMATOCRIT 32 % (39-51); HEMOGLOBIN 10.3 g/dL (13.5-17.5); LYMPHOCYTES # (AUTO) 0.6 K/uL (0.8-4.8); LYMPHOCYTES % (AUTO) 12.6 % (20.0-44.0); MEAN CORPUSCULAR HGB CONC 33 g/dl (31.0-36.0); MEAN CORPUSCULAR VOLUME 84 fL (80-96); MONOCYTES # (AUTO) 0.6 K/uL (0.1-1.30); MONOCYTES % (AUTO) 14.2 % (2.0-12.0); NEUTROPHILS # (AUTO) 3.1 K/uL (1.8-8.9); NEUTROPHILS % (AUTO) 70.7 % (43.0-81.0); PLATELET COUNT (AUTO) 141 K/uL (150-450); RED BLOOD CELL COUNT(AUTO) 3.78 MIL/uL (4.5-6.0); WHITE BLOOD COUNT (AUTO) 4.4 K/uL (4.3-11.0)
[2021-02-09 06:33] LABS: CALCIUM, SERUM 7.8 mg/dL (8.5-10.1); CREATININE 1.3 mg/dL (0.6-1.3)
[2021-02-09] MEDS: PANTOPRAZOLE 40 MG TABLET.DR PO SCH (07:30)
--- NOTE | 2021-02-09 07:38 | NUR ---
INGREDIENT SPECIALIST CLOSING NOTES: PATIENT AWAKE IN BED, BED IN LOW POSITION, CALL LIGHTS WITHIN REACH, NO COMPLAIN OF PAIN AND DISCOMFORT, PATIENT IS ON NPO, WITH SCHEDULE OF MRI AND CT SCAN ALL CONSENT EXPLAINED AND SIGNED, A/O X4 NO SOB NOTED PATIENT KEPT CLEAN AND DRY ,ALL NEEDS MET, ENDORSE TO INCOMING SHIFT.
--- NOTE | 2021-02-09 07:40 | NUR ---
RN NOTES SEEN PATIENT IN BED RESTING, AWAKE AND VERBALLY RESPONSIVE. BREATHING EVEN AND UNLABORED, ON O2 AT 4LPM VIA NC, NO RESPIRATORY DISTRESS. RFA #18 INTACT AND PATENT. FOR SCHEDULED CT/MRI PROCEDURE TODAY. SAFETY MEASURES IN PLACE. WILL CONTINUE TO MONITOR.
--- NOTE | 2021-02-09 07:57 | NUR ---
RECEIVED ON 4 LPM O2 FLOW VIA NASAL CANNULA. WITH SPO2 98% AND NO SOB NOTED. Addendum: 02/09/21 at 0758 by MAINE MURRAY RT Amended: Links added.
[2021-02-09 08:00] VITALS: BP 128/66
--- NOTE | 2021-02-09 08:36 | NUR ---
RN NOTES PATIENT PICKED UP FOR CT PROCEDURE VIA WHEELCHAIR, ACCOMPANIED BY SUSAN LEBRON
[2021-02-09] MEDS: NICOTINE PATCH (21MG) 21 MG PATCH.TD24 TD SCH (09:37)
[2021-02-09] MEDS: METOPROLOL TARTRATE 25 MG TABLET PO SCH ×2 (09:37→21:36)
[2021-02-09] MEDS: FLUTICASONE/VILANTEROL 1 EACH BLST.W.DEV IH SCH (09:37)
[2021-02-09] MEDS: ASCORBIC ACID 500 MG TABLET PO SCH (09:37)
[2021-02-09] MEDS: FUROSEMIDE 20 MG TABLET PO SCH (09:38)
[2021-02-09] MEDS: DULOXETINE HCL 30 MG CAPSULE.DR PO SCH (09:38)
[2021-02-09] MEDS: CHOLECALCIFEROL 1,000 UNIT TABLET (VIT D3) PO SCH (09:38)
[2021-02-09] MEDS: MIDODRINE HCL (5MG) 5 MG TABLET PO SCH ×3 (09:38→16:12)
[2021-02-09] MEDS: DIGOXIN 0.125 MG TABLET PO SCH (09:38)
[2021-02-09] MEDS: SPIRONOLACTONE 25 MG TABLET PO SCH (09:40)
[2021-02-09] MEDS: ZINC SULFATE 220 MG CAPSULE PO SCH (09:40)
--- NOTE | 2021-02-09 10:16 | NUR ---
RN NOTES PATIENT WAS SEEN BY DR. HI AND DR. MACHADO; FOR R LUNG US-GUIDED THORACENTESIS TODAY PER DR. MACHADO. CONSENT FORM SIGNED BY PATIENT AND PLACED IN CHART.
--- NOTE | 2021-02-09 10:22 | NUR ---
RN NOTES SPOKE W/ ADA FROM RADIOLOGY; WILL DO US-GUIDED THORACENTESIS SOME TIME IN THE AFTERNOON.
--- NOTE | 2021-02-09 14:14 | NUR ---
RN NOTES S/P THORACENTESIS OF RIGHT LUNG; OUTPUT OF 1600CC. ORDERED STAT CXR. PROCEDURE TOLERATED WELL BY PATIENT.
[2021-02-09] MEDS: SOD FERRIC GLUC 125 MG in IV NS 0.9% 100 ML IV SCH (14:31)
--- NOTE | 2021-02-09 15:05 | NUR ---
RN NOTES PATIENT PICKED UP FOR MRI PROCEDURE VIA WHEELCHAIR, ACCOMPANIED BY SUSAN PIZANO
[2021-02-09 16:00] VITALS: BP 114/73
[2021-02-09] MEDS: HYDROCODONE/APAP 5/325MG TABLET PO PRN (16:11)
[2021-02-09] MEDS: CEFTRIAXONE 1 G in IV D5W 50 ML IV SCH (16:13)
--- NOTE | 2021-02-09 19:35 | NUR ---
HEART SPECIALIST NOTES PATIENT IN BED, AWAKE, ALERT AND ORIENTED X 4. BREATHING EVEN AND UNLABORED ON 4L NC. SHOWS NO SIGNS OF ACUTE RESPIRATORY DISTRESS. NO ACUTE PAIN. TELE MONITOR SR WITH PVC AND PAC. IV CLEAN DRY AND INTACT. IV ON L WRIST 22G CLEAN DRY AND INTACT. SAFETY PRECAUTIONS IN PLACE. BED IN LOWEST POSITION, LOCKED, AND CALL LIGHT KEPT WITHIN REACH. WILL CONTINUE TO MONITOR.
[2021-02-09 20:00] VITALS: BP 111/69
[2021-02-09 21:06] LABS: *ANA ANTI-CENTROMERE B AB <0.2 AI (0.0-0.9); *ANA ANTI-DNA(DS) AB, QN <1 IU/mL (0-9); *ANA ANTI-JO-1 <0.2 AI (0.0-0.9); *ANA ANTICHROMATIN ANTIBODY <0.2 AI (0.0-0.9); *ANA RNP ANTIBODIES <0.2 AI (0.0-0.9); *ANA SJOGREN'S ANTI-SS-A <0.2 AI (0.0-0.9); *ANA SJOGREN'S ANTI-SS-B <0.2 AI (0.0-0.9); *ANAANTI-SCLERODERMA-70 AB <0.2 AI (0.0-0.9); *ANASMITH AB <0.2 AI (0.0-0.9)
[2021-02-09] MEDS: ENOXAPARIN SODIUM 40 MG/0.4 ML DISP.SYRIN SQ SCH (21:37)
[2021-02-09 22:00] VITALS: BP 111/69
[2021-02-09] MEDS: hydrOXYzine PAMOATE 25 MG CAPSULE PO SCH (22:00)
[2021-02-10] VITALS: BP 115/67
[2021-02-10] MEDS: ZOLPIDEM TARTRATE 5 MG TABLET PO PRN ×2 (00:32→23:37)
[2021-02-10] MEDS: LEVALBUTEROL HCL NEB 1.25 MG/0.5 ML VIAL.NEB NEB SCH ×4 (00:46→19:57)
[2021-02-10] MEDS: IPRATROPIUM NEB FS 0.5 MG/2.5 ML AMPUL.NEB NEB SCH ×4 (00:46→19:57)
[2021-02-10 04:00] VITALS: BP 102/60
--- NOTE | 2021-02-10 06:32 | NUR ---
ESTIMATE CLERK NOTES PATIENT IN BED, ASLEEP, ALERT AND ORIENTED X 4. BREATHING EVEN AND UNLABORED ON 4L NC. SHOWS NO SIGNS OF ACUTE RESPIRATORY DISTRESS. NO ACUTE PAIN. TELE MONITOR SR WITH PVC AND PAC. IV ON L WRIST 22G CLEAN DRY AND INTACT. ALL DUE MEDICATIONS GIVEN. ALL NEEDS ATTENDED TO. SAFETY PRECAUTIONS IN PLACE. BED IN LOWEST POSITION, LOCKED, AND CALL LIGHT KEPT WITHIN REACH. WILL ENDORSE TO ONCOMING NURSE.
--- NOTE | 2021-02-10 07:21 | NUR ---
RN NOTES SEEN PATIENT AT BEDSIDE USING URINAL, AWAKE AND VERBALLY RESPONSIVE, NOT IN ACUTE DISTRESS. A/O X4, ABLE TO MAKE NEEDS KNOWN. ON O2 AT 4L/MIN VIA NC, NO RESPIRATORY DISTRESS NOTED. IV LINE ON RFA INTACT AND PATENT. ON CARDIAC MONITORING, READING OF SR W/ PVC AND PAC, NO CARDIAC DISTRESS. SAFETY MEASURES IN PLACE. WILL CONTINUE TO MONITOR.
[2021-02-10 08:00] VITALS: BP 105/66
[2021-02-10] MEDS: DULOXETINE HCL 30 MG CAPSULE.DR PO SCH (08:46)
[2021-02-10] MEDS: CHOLECALCIFEROL 1,000 UNIT TABLET (VIT D3) PO SCH (08:46)
[2021-02-10] MEDS: PANTOPRAZOLE 40 MG TABLET.DR PO SCH (08:46)
[2021-02-10] MEDS: MIDODRINE HCL (5MG) 5 MG TABLET PO SCH ×3 (08:47→16:15)
[2021-02-10] MEDS: FUROSEMIDE 20 MG TABLET PO SCH ×2 (08:47→16:15)
[2021-02-10] MEDS: ZINC SULFATE 220 MG CAPSULE PO SCH (08:47)
[2021-02-10] MEDS: SPIRONOLACTONE 25 MG TABLET PO SCH (08:49)
[2021-02-10] MEDS: METOPROLOL TARTRATE 25 MG TABLET PO SCH ×2 (08:49→21:30)
[2021-02-10] MEDS: DIGOXIN 0.125 MG TABLET PO SCH (08:49)
[2021-02-10] MEDS: ASCORBIC ACID 500 MG TABLET PO SCH (08:49)
[2021-02-10] MEDS: NICOTINE PATCH (21MG) 21 MG PATCH.TD24 TD SCH (08:50)
[2021-02-10] MEDS: FLUTICASONE/VILANTEROL 1 EACH BLST.W.DEV IH SCH (08:52)
[2021-02-10] MEDS: HYDROCODONE/APAP 5/325MG TABLET PO PRN ×3 (10:02→23:25)
--- NOTE | 2021-02-10 14:00 | NUR ---
RN NOTES PATIENT SEEN BY CATHY POWELL, AND DR. MACHADO TODAY.
[2021-02-10] MEDS: SOD FERRIC GLUC 125 MG in IV NS 0.9% 100 ML IV SCH (15:26)
[2021-02-10 16:00] VITALS: BP 111/71
[2021-02-10] MEDS: CEFTRIAXONE 1 G in IV D5W 50 ML IV SCH (16:15)
--- NOTE | 2021-02-10 18:27 | NUR ---
RN NOTES PATIENT IN BED RESTING, AWAKE AND VERBALLY RESPONSIVE. PRN NORCO GIVEN PER PATIENT REQUEST D/T BACK PAIN RATED 7/10; ABLE TO AMBULATE SHORT DISTANCE. CONTINUES ON O2 VIA NC AT 4LPM, NO SOB NOTED. IV AND PO MEDS ADMINISTERED. NPO POST MIDNIGHT FOR MRI W/ CONTRAST PROCEDURE TOMORROW. SAFETY MEASURES MAINTAINED. WILL ENDORSE TO CONDUIT INSTALLER RN FOR DENIA.
--- NOTE | 2021-02-10 19:40 | NUR ---
Patient awake A&Ox4. No signs of distress. Continues on 4L O2 on NC. States he feels "okay" but fatigued. Patient is able to make needs known. Call light within reach.
[2021-02-10 21:12] VITALS: BP 121/69
[2021-02-10] MEDS ORDERED: FUROSEMIDE 40 MG/4 ML VIAL IV ONE (21:30)
[2021-02-10] MEDS: hydrOXYzine PAMOATE 25 MG CAPSULE PO SCH (21:30)
[2021-02-10] MEDS: ENOXAPARIN SODIUM 40 MG/0.4 ML DISP.SYRIN SQ SCH (21:33)
--- NOTE | 2021-02-10 22:00 | NUR ---
Patient requests paracentesis tonight stating he is so uncomfortable he doesnt know if he can wait until tomorrow. POA calls requesting the same thing and that the doctor is contacted. relays that IR does not do paracentesis in the middle of the night even if it was a true emergency. Told POA that the only options for tonight are for the patient to either (1) leave AMA and go to a different ER for paracentesis or (2) one time dose of lasix to remove some fluid along with norco administration for pain/discomfort overnight. Patient and POA agree Lasix and norco will be fine to get patient through the night.
[2021-02-11] MEDS: IPRATROPIUM NEB FS 0.5 MG/2.5 ML AMPUL.NEB NEB SCH ×4 (01:30→19:30)
[2021-02-11] MEDS: LEVALBUTEROL HCL NEB 1.25 MG/0.5 ML VIAL.NEB NEB SCH ×4 (01:30→19:30)
--- NOTE | 2021-02-11 06:19 | NUR ---
Patient awake, A&Ox4. VSS. Reports that Lasix was able to relieve some of the pressure/pain in his abdomen and he was able to sleep well throughout the night. Denies SOB, on O2 4L via NC. Scheduled for MRI with contrast today, has been NPO since midnight.
[2021-02-11 07:08] LABS: EOSINOPHILS % (AUTO) 4.9 % (0.0-6.0); HEMATOCRIT 30 % (39-51); HEMOGLOBIN 9.8 g/dL (13.5-17.5); LYMPHOCYTES # (AUTO) 0.5 K/uL (0.8-4.8); LYMPHOCYTES % (AUTO) 13.2 % (20.0-44.0); MEAN CORPUSCULAR HGB CONC 33 g/dl (31.0-36.0); MEAN CORPUSCULAR VOLUME 84 fL (80-96); MONOCYTES # (AUTO) 0.7 K/uL (0.1-1.30); MONOCYTES % (AUTO) 19.2 % (2.0-12.0); NEUTROPHILS # (AUTO) 2.4 K/uL (1.8-8.9); NEUTROPHILS % (AUTO) 61.7 % (43.0-81.0); PLATELET COUNT (AUTO) 123 K/uL (150-450); RED BLOOD CELL COUNT(AUTO) 3.57 MIL/uL (4.5-6.0); WHITE BLOOD COUNT (AUTO) 3.9 K/uL (4.3-11.0)
[2021-02-11 07:22] LABS: CALCIUM, SERUM 7.9 mg/dL (8.5-10.1); POTASSIUM 3.7 mmol/L (3.5-5.1)
--- NOTE | 2021-02-11 07:30 | NUR ---
received pt. this am alert and oriented x3-4.loose cough.
[2021-02-11 08:00] VITALS: BP 119/76
[2021-02-11 08:30] LABS: EOSINOPHILS % (MANUAL) 3 % (0-4); LYMPHOCYTES % (MANUAL) 13 % (16-48); MONOCYTES % (MANUAL) 19 % (0-11.0); NEUTROPHILS % (MANUAL) 65 (42-76)
[2021-02-11] MEDS: METOPROLOL TARTRATE 25 MG TABLET PO SCH ×2 (09:00→21:00)
[2021-02-11] MEDS: SPIRONOLACTONE 25 MG TABLET PO SCH (09:00)
[2021-02-11] MEDS: DULOXETINE HCL 30 MG CAPSULE.DR PO SCH (09:40)
[2021-02-11] MEDS: NICOTINE PATCH (21MG) 21 MG PATCH.TD24 TD SCH (09:40)
[2021-02-11] MEDS: ZINC SULFATE 220 MG CAPSULE PO SCH (09:40)
[2021-02-11] MEDS: ASCORBIC ACID 500 MG TABLET PO SCH (09:41)
[2021-02-11] MEDS: CHOLECALCIFEROL 1,000 UNIT TABLET (VIT D3) PO SCH (09:41)
[2021-02-11] MEDS: MIDODRINE HCL (5MG) 5 MG TABLET PO SCH ×3 (09:42→18:54)
[2021-02-11] MEDS: FUROSEMIDE 20 MG TABLET PO SCH ×2 (09:42→18:54)
[2021-02-11] MEDS: PANTOPRAZOLE 40 MG TABLET.DR PO SCH (09:46)
[2021-02-11] MEDS: FLUTICASONE/VILANTEROL 1 EACH BLST.W.DEV IH SCH (09:46)
--- NOTE | 2021-02-11 10:00 | NUR ---
dr. downs in and suggested snf to pt.and flatly refused snf.then shortly after caregiver calling and demanding that pt. not go to snf.nurse outreach case managermgr. smith contacted and will follow up with
[2021-02-11] MEDS: DIGOXIN 0.125 MG TABLET PO SCH (10:10)
--- NOTE | 2021-02-11 13:00 | NUR ---
pt. down for mri.now awaiting arrival of radiologist for paracentesis.
[2021-02-11] MEDS: SOD FERRIC GLUC 125 MG in IV NS 0.9% 100 ML IV SCH (14:09)
[2021-02-11 16:00] VITALS: BP 118/74
[2021-02-11] MEDS: CEFTRIAXONE 1 G in IV D5W 50 ML IV SCH (16:33)
--- NOTE | 2021-02-11 17:30 | NUR ---
ADDITIONALLY BESIDES MRI PT. HAD PARACENTESIS.1650 ML OF FLUID REMOVED.TOLERATED WELL.
--- NOTE | 2021-02-11 19:50 | NUR ---
MS RN OPENING NOTES: RECEIVED PATIENT SLEEP IN BED COMFORTABLY, AROUSABLE TO STIMULI, BED IN LOW POSTION, CALL LIGHTS WITHIN REACH, NO COMPLAIN OF PAIN ANDD DISCOMFORT AT THIS TIME, PATIENT IS A/OX4 AMBULATORY WITH SUPERVISION, WITH RFA IC #22 SL. PATIENT KEPT CLEAN AND DRY, WILL CONTINUE TO MONITOR.
[2021-02-11 19:58] VITALS: BP 161/92
[2021-02-11 20:00] VITALS: BP 105/62
[2021-02-11] MEDS: hydrOXYzine PAMOATE 25 MG CAPSULE PO SCH (21:07)
[2021-02-11] MEDS: HYDROCODONE/APAP 5/325MG TABLET PO PRN (21:07)
[2021-02-11] MEDS: ENOXAPARIN SODIUM 40 MG/0.4 ML DISP.SYRIN SQ SCH (21:09)
[2021-02-11] MEDS: ZOLPIDEM TARTRATE 5 MG TABLET PO PRN (23:26)
[2021-02-12] MEDS: IPRATROPIUM NEB FS 0.5 MG/2.5 ML AMPUL.NEB NEB SCH ×4 (01:16→21:44)
[2021-02-12] MEDS: LEVALBUTEROL HCL NEB 1.25 MG/0.5 ML VIAL.NEB NEB SCH ×4 (01:16→21:44)
--- NOTE | 2021-02-12 06:21 | NUR ---
MS RN CLOSING NOTES: PATIENT AWAKE IN BED, BED IN LOW POSITION,CALL LIGHTS WITHIN REACH, NO COMPLAIN OF PAIN AND DISCOMFORT AT THIS TIME, PATIENT HAS RFA IV INFUSING WELL, AMBULATORY WITH SUPERVISION, PARACENTISIS DONE WITH OUTPUT OF 1650ML ALL NEEDS MET, EPT CLEAN AND DRY, ENDORSE TO INCOMING SHIFT.
[2021-02-12 08:00] VITALS: BP 103/51
--- NOTE | 2021-02-12 08:02 | NUR ---
MS RN OPENING NOTES RECEIVE PT AWAKE IN BED AT THIS TIME. AOX4. ABLE TO MAKE NEEDS KNOWN. NO SOB NOTED, NO S/O OF ANY ACUTE DISTRESS NOTED, NO C/O PAIN AT THIS. BREATHING EVEN AND UNLABORED. PT ON 2LPM OXYGEN VIA NC. IV ACCESS IN RFA G#22, INTACT, PATENT AND FLUSHING WELL. SAFETY PRECAUTIONS IN PLACE AND MAINTAINED AT ALL TIMES. BED IN LOWEST LOCKED POSITION, HOB ELEVATED, SIDE RAILS UP X2, CALL LIGHT AND TABLE WITHIN REACH. WILL CONTINUE TO MONITOR
[2021-02-12] MEDS: PANTOPRAZOLE 40 MG TABLET.DR PO SCH (08:35)
[2021-02-12] MEDS: METOPROLOL TARTRATE 25 MG TABLET PO SCH ×2 (09:00→21:00)
[2021-02-12] MEDS: FUROSEMIDE 20 MG TABLET PO SCH ×2 (09:52→17:36)
[2021-02-12] MEDS: DULOXETINE HCL 30 MG CAPSULE.DR PO SCH (09:53)
[2021-02-12] MEDS: ZINC SULFATE 220 MG CAPSULE PO SCH (09:54)
[2021-02-12] MEDS: MIDODRINE HCL (5MG) 5 MG TABLET PO SCH ×3 (09:54→17:36)
[2021-02-12] MEDS: DIGOXIN 0.125 MG TABLET PO SCH (09:54)
[2021-02-12] MEDS: SPIRONOLACTONE 25 MG TABLET PO SCH (09:54)
[2021-02-12] MEDS: ASCORBIC ACID 500 MG TABLET PO SCH (09:55)
[2021-02-12] MEDS: CHOLECALCIFEROL 1,000 UNIT TABLET (VIT D3) PO SCH (09:55)
[2021-02-12] MEDS: NICOTINE PATCH (21MG) 21 MG PATCH.TD24 TD SCH (09:58)
[2021-02-12] MEDS: FLUTICASONE/VILANTEROL 1 EACH BLST.W.DEV IH SCH (10:01)
[2021-02-12] MEDS: SOD FERRIC GLUC 125 MG in IV NS 0.9% 100 ML IV SCH (15:11)
[2021-02-12 16:00] VITALS: BP 105/70
--- NOTE | 2021-02-12 19:05 | NUR ---
RN CLOSING NOTES RECEIVED PT AWAKE IN BED, PT REMAINED STABLE THROUGHOUT SHIFT. ALL PATIENT CARE, NEEDS AND MEDICATIONS ADMINISTERED ANTICIPATED PER ORDER. KEPT CLEAN AND DRY. SAFETY PRECAUTIONS IN PLACE AND MAINTAINED AT ALL TIMES. BED IN LOWEST LOCKED POSITION, HOB ELEVATED, SIDE RAILS UP X2, CALL LIGHT AND TABLE WITHIN REACH. WILL ENDORSE TO GEAR TECHNICIAN NURSE FOR DENIA
--- NOTE | 2021-02-12 19:43 | NUR ---
RN OPENING NOTES: RECEIVED PATIENT AWAKE IN BED, BED IN LOW POSITION, CALL LIHTS WITHIN REACH, NO COMPLAIN OF PAIN AND DISCOMFORT AT THIS TIME, PATIENT WAS WITH FAMILY, A/OX 3 CUBAN SPEAKING, AMBULATORY ON BRP WITH SUPERVISION, WITH RHAND IV LINE #22 AND ZANDER ML INFUSING WELL, NO SOB NOTED, PATIENT KEPT CLEAN AND DRY WILL CONTINUE TO MONITOR. Addendum: 02/12/21 at 1948 by DAREN GARCIA RN AMBROSIO WRONG PATIENT:
--- NOTE | 2021-02-12 19:49 | NUR ---
RN OPENING NOTES: RECEIVED PATIENT AWAKE IN BED, BED IN LOW POSITION, CALL LIGHTS WITHIN REACH, NO COMPLAIN OF PAIN AND DISCOMFORT AT THIS TIME, A/O X4 ABLE TO MAKE NEEDS KNOWN, AMBULATORY WITH SUPERVISION, ON CARDIAC DIET WITH RFA #22 INFUSING WELL, NO RESP. DISTRESS WAS OBSERVED, KEPT CLEAN AND DRY, WILL CONTINUE TO MONITOR.
[2021-02-12 20:24] VITALS: BP 100/61
[2021-02-12] MEDS: HYDROCODONE/APAP 5/325MG TABLET PO PRN (20:31)
[2021-02-12] MEDS: ENOXAPARIN SODIUM 40 MG/0.4 ML DISP.SYRIN SQ SCH (21:57)
[2021-02-12] MEDS: hydrOXYzine PAMOATE 25 MG CAPSULE PO SCH (21:58)
[2021-02-12] MEDS: ZOLPIDEM TARTRATE 5 MG TABLET PO PRN (23:23)
[2021-02-13] MEDS: LEVALBUTEROL HCL NEB 1.25 MG/0.5 ML VIAL.NEB NEB SCH ×4 (01:30→19:30)
[2021-02-13] MEDS: IPRATROPIUM NEB FS 0.5 MG/2.5 ML AMPUL.NEB NEB SCH ×4 (01:30→19:30)
--- NOTE | 2021-02-13 06:23 | NUR ---
RN CLOSING NOTES: PATIENT SLEEP IN BED COMFORTABLY AROUSABLE TO STIMULI, BED IN LOW POSTION, CALL LIGHTS WITHIN REACH, NO COMPLAIN OF PAIN AND DISCOMFORT AT THIS TIME, PATIENT KEPT CLEAN AND DRY, WILL CONTINUE TO MONITOR.
[2021-02-13 07:21] LABS: BASOPHILS # (AUTO) 0.1 K/uL (0.0-0.2); HEMATOCRIT 30 % (39-51); HEMOGLOBIN 9.8 g/dL (13.5-17.5); LYMPHOCYTES # (AUTO) 0.7 K/uL (0.8-4.8); LYMPHOCYTES % (AUTO) 14.7 % (20.0-44.0); MEAN CORPUSCULAR HGB CONC 33 g/dl (31.0-36.0); MEAN CORPUSCULAR VOLUME 85 fL (80-96); MONOCYTES # (AUTO) 0.9 K/uL (0.1-1.30); MONOCYTES % (AUTO) 18.8 % (2.0-12.0); NEUTROPHILS # (AUTO) 3.2 K/uL (1.8-8.9); NEUTROPHILS % (AUTO) 63.5 % (43.0-81.0); PLATELET COUNT (AUTO) 141 K/uL (150-450); RED BLOOD CELL COUNT(AUTO) 3.56 MIL/uL (4.5-6.0)
[2021-02-13 07:53] LABS: ALBUMIN 2.3 g/dL (3.4-5.0); BILIRUBIN,TOTAL 0.7 mg/dL (0.2-1.0); POTASSIUM 4.1 mmol/L (3.5-5.1); TOTAL PROTEIN, SERUM 7.3 g/dL (6.4-8.2)
[2021-02-13 07:59] VITALS: BP 105/68
[2021-02-13] MEDS: NICOTINE PATCH (21MG) 21 MG PATCH.TD24 TD SCH (08:37)
[2021-02-13] MEDS: FLUTICASONE/VILANTEROL 1 EACH BLST.W.DEV IH SCH (08:37)
[2021-02-13] MEDS: CHOLECALCIFEROL 1,000 UNIT TABLET (VIT D3) PO SCH (08:37)
[2021-02-13] MEDS: SPIRONOLACTONE 25 MG TABLET PO SCH ×2 (08:37→16:37)
[2021-02-13] MEDS: ASCORBIC ACID 500 MG TABLET PO SCH (08:38)
[2021-02-13] MEDS: ZINC SULFATE 220 MG CAPSULE PO SCH (08:38)
[2021-02-13] MEDS: DULOXETINE HCL 30 MG CAPSULE.DR PO SCH (08:38)
[2021-02-13] MEDS: METOPROLOL TARTRATE 25 MG TABLET PO SCH ×2 (08:38→20:47)
[2021-02-13] MEDS: PANTOPRAZOLE 40 MG TABLET.DR PO SCH (08:38)
[2021-02-13] MEDS: DIGOXIN 0.125 MG TABLET PO SCH (08:38)
[2021-02-13] MEDS: MIDODRINE HCL (5MG) 5 MG TABLET PO SCH ×3 (08:39→16:37)
[2021-02-13] MEDS: FUROSEMIDE 20 MG TABLET PO SCH ×2 (08:39→16:37)
[2021-02-13 09:30] LABS: EOSINOPHILS % (MANUAL) 2 % (0-4); LYMPHOCYTES % (MANUAL) 15 % (16-48); MONOCYTES % (MANUAL) 17 % (0-11.0); NEUTROPHILS % (MANUAL) 66 (42-76)
--- NOTE | 2021-02-13 10:00 | NUR ---
m/s hand bulldozer: md visit seen and examined by dr. ortiz with order to be Transferred to [facility] for TIPS procedure. order acknowledge. case management making arrangement.
--- NOTE | 2021-02-13 14:50 | NUR ---
m/s termite technician: notes dpoa here visiting and aware of pending transfer to [facility]. still awaiting authorization from insurance.
--- NOTE | 2021-02-13 15:15 | NUR ---
m/s trimming cutter machine: notes carolina (cm) at bedside talking to dpoa and pt. transfer to [facility] still pending.
[2021-02-13 16:13] VITALS: BP 97/70
--- NOTE | 2021-02-13 17:00 | NUR ---
m/s kiln burner: notes having dinner at this time. no distress noted.
--- NOTE | 2021-02-13 18:30 | NUR ---
m/s room service waiter/waitress: notes resting comfortable in bed. still on o2 at 2l/min via n/c. no s/s of resp. distress noted. needs attended. call light within reach.
--- NOTE | 2021-02-13 19:00 | NUR ---
m/s water tender: notes report given to jimenez (rn) for continuity of care.
--- NOTE | 2021-02-13 19:30 | NUR ---
MS RN NOTES RECEIVED PATIENT IN BED, AWAKE, A&O X 4, WITH O2 VIA NC AT AT 2LPM SATURATING WELL AT 96%, IN NO ACUTE DISTRESS NOTED. NO SOB NOTED. NO COMPLAINTS OF PAIN NOTED AT THIS TIME. IV ACCESS ON RAC G#22 PATENT AND FLUSHES WELL. ON CARDIAC DIET. SAFETY PRECAUTIONS OBSERVED: BED ON LOWEST LOCKED POSITION, KEPT SIDE RAILS UP X 2, KEPT CALL LIGHT WITHIN EASY REACH. ON CARDIAC DIET. WILL CONTINUE TO MONITOR PATIENT'S CURRENT CONDITION.
[2021-02-13 20:00] VITALS: BP 111/60
[2021-02-13] MEDS: ENOXAPARIN SODIUM 40 MG/0.4 ML DISP.SYRIN SQ SCH (20:50)
[2021-02-13] MEDS: hydrOXYzine PAMOATE 25 MG CAPSULE PO SCH (21:25)
[2021-02-13] MEDS: ZOLPIDEM TARTRATE 5 MG TABLET PO PRN (23:46)
[2021-02-14] MEDS: IPRATROPIUM NEB FS 0.5 MG/2.5 ML AMPUL.NEB NEB SCH ×4 (01:30→20:30)
[2021-02-14] MEDS: LEVALBUTEROL HCL NEB 1.25 MG/0.5 ML VIAL.NEB NEB SCH ×4 (01:30→20:30)
--- NOTE | 2021-02-14 06:31 | NUR ---
MS RN CLOSING NOTES PATIENT IN BED, AWAKE, A&O X 4, WITH O2 VIA NC AT AT 2LPM SATURATING WELL AT 98%, IN NO ACUTE DISTRESS NOTED. NO SOB NOTED. NO COMPLAINTS OF PAIN AT THIS TIME. IV ACCESS ON RAC G#22 PATENT AND FLUSHES WELL. ON CARDIAC DIET. SAFETY PRECAUTIONS OBSERVED AND MAINTAINED DURING THE SHIFT: BED ON LOWEST LOCKED POSITION, KEPT SIDE RAILS UP X 2, KEPT CALL LIGHT WITHIN EASY REACH. ON CARDIAC DIET. ALL NEEDS ATTENDED AND MET. WILL ENDORSE TO MORNING SHIFT NURSE FOR DENIA.
--- NOTE | 2021-02-14 08:00 | NUR ---
m/s enrollment processor: md visit seen and examined by dr. ahn at this time with no new order. still pending transfer to [facility], pt aware. no c/o pain or any discomfort. remains on o2 at 2l/min via n/c.
[2021-02-14 08:19] VITALS: BP 109/53
[2021-02-14] MEDS: METOPROLOL TARTRATE 25 MG TABLET PO SCH ×2 (08:26→21:32)
[2021-02-14] MEDS: SPIRONOLACTONE 25 MG TABLET PO SCH ×2 (08:32→17:24)
[2021-02-14] MEDS: CHOLECALCIFEROL 1,000 UNIT TABLET (VIT D3) PO SCH (08:34)
[2021-02-14] MEDS: ZINC SULFATE 220 MG CAPSULE PO SCH (08:34)
[2021-02-14] MEDS: ASCORBIC ACID 500 MG TABLET PO SCH (08:34)
[2021-02-14] MEDS: MIDODRINE HCL (5MG) 5 MG TABLET PO SCH ×3 (08:35→17:24)
[2021-02-14] MEDS: DULOXETINE HCL 30 MG CAPSULE.DR PO SCH (08:35)
[2021-02-14] MEDS: PANTOPRAZOLE 40 MG TABLET.DR PO SCH (08:35)
[2021-02-14] MEDS: FLUTICASONE/VILANTEROL 1 EACH BLST.W.DEV IH SCH (08:35)
[2021-02-14] MEDS: DIGOXIN 0.125 MG TABLET PO SCH (08:35)
[2021-02-14] MEDS: NICOTINE PATCH (21MG) 21 MG PATCH.TD24 TD SCH (08:35)
[2021-02-14] MEDS: FUROSEMIDE 20 MG TABLET PO SCH ×2 (08:35→17:24)
--- NOTE | 2021-02-14 10:00 | NUR ---
m/s lab support service tech: notes resting comfortable in bed. no distress noted.
--- NOTE | 2021-02-14 14:00 | NUR ---
m/s sheet metal mechanic: notes still pending transfer to [facility] when bed is available. pt aware. no distress noted.
[2021-02-14 15:57] VITALS: BP 102/64
--- NOTE | 2021-02-14 17:00 | NUR ---
m/s risk and compliance analytics director: notes having dinner at this time. no distress noted. will continue to monitor.
--- NOTE | 2021-02-14 19:20 | NUR ---
m/s olive picker: notes report given to jimenez (rn) for continuity of care.
[2021-02-14 20:00] VITALS: BP 107/70
[2021-02-14 20:25] VITALS: BP 107/70
[2021-02-14] MEDS: ENOXAPARIN SODIUM 40 MG/0.4 ML DISP.SYRIN SQ SCH (21:34)
[2021-02-14] MEDS: hydrOXYzine PAMOATE 25 MG CAPSULE PO SCH (22:18)
[2021-02-14] MEDS: ZOLPIDEM TARTRATE 5 MG TABLET PO PRN (23:50)
[2021-02-15] MEDS: LEVALBUTEROL HCL NEB 1.25 MG/0.5 ML VIAL.NEB NEB SCH ×4 (01:25→20:08)
[2021-02-15] MEDS: IPRATROPIUM NEB FS 0.5 MG/2.5 ML AMPUL.NEB NEB SCH ×4 (01:25→20:08)
--- NOTE | 2021-02-15 06:34 | NUR ---
MS RN CLOSING NOTES PATIENT IN BED, AWAKE, A&O X 4, WITH O2 VIA NC AT AT 2LPM SATURATING WELL AT 96%, IN NO ACUTE DISTRESS NOTED. NO SOB NOTED. NO COMPLAINTS OF PAIN NOTED AT THIS TIME. IV ACCESS ON RAC G#22 PATENT AND FLUSHES WELL. ON CARDIAC DIET. SAFETY PRECAUTIONS OBSERVED AND MAINTAINED DURING THE SHIFT: BED ON LOWEST LOCKED POSITION, KEPT SIDE RAILS UP X 2, KEPT CALL LIGHT WITHIN EASY REACH. ALL NEEDS ATTENDED, PENDING TRANSFER TO [facility], NO BED AVAILABILITY, CM TO FOLLOW UP. WILL ENDORSE TO MORNING SHIFT NURSE FOR DENIA.
[2021-02-15 06:44] LABS: BASOPHILS % (AUTO) 0.5 % (0.0-2.0); EOSINOPHILS % (AUTO) 1.2 % (0.0-6.0); HEMATOCRIT 29 % (39-51); HEMOGLOBIN 9.6 g/dL (13.5-17.5); LYMPHOCYTES # (AUTO) 0.6 K/uL (0.8-4.8); LYMPHOCYTES % (AUTO) 13.3 % (20.0-44.0); MEAN CORPUSCULAR HGB CONC 33 g/dl (31.0-36.0); MEAN CORPUSCULAR VOLUME 85 fL (80-96); MONOCYTES # (AUTO) 0.6 K/uL (0.1-1.30); MONOCYTES % (AUTO) 14.1 % (2.0-12.0); NEUTROPHILS # (AUTO) 3.2 K/uL (1.8-8.9); NEUTROPHILS % (AUTO) 70.9 % (43.0-81.0); PLATELET COUNT (AUTO) 149 K/uL (150-450); RED BLOOD CELL COUNT(AUTO) 3.43 MIL/uL (4.5-6.0); WHITE BLOOD COUNT (AUTO) 4.5 K/uL (4.3-11.0)
[2021-02-15] MEDS: PANTOPRAZOLE 40 MG TABLET.DR PO SCH (07:29)
[2021-02-15 08:00] VITALS: BP 92/66
--- NOTE | 2021-02-15 08:27 | NUR ---
RN OPENING NOTE- PATIENT IN BED, AWAKE, A&O X 4, WITH O2 VIA NC AT AT 2LPM SATURATING WELL AT 96%, IN NO ACUTE DISTRESS NOTED. NO SOB NOTED. NO COMPLAINTS OF PAIN NOTED AT THIS TIME. IV ACCESS ON RAC G#22 PATENT AND FLUSHES WELL. ON CARDIAC DIET. SAFETY PRECAUTIONS OBSERVED: BED ON LOWEST LOCKED POSITION, KEPT SIDE RAILS UP X 2, KEPT CALL LIGHT WITHIN EASY REACH. ON CARDIAC DIET. WILL CONTINUE TO MONITOR PATIENT'S CURRENT CONDITION.
[2021-02-15] MEDS: CHOLECALCIFEROL 1,000 UNIT TABLET (VIT D3) PO SCH (09:27)
[2021-02-15] MEDS: METOPROLOL TARTRATE 25 MG TABLET PO SCH ×2 (09:27→20:53)
[2021-02-15] MEDS: NICOTINE PATCH (21MG) 21 MG PATCH.TD24 TD SCH (09:27)
[2021-02-15] MEDS: DULOXETINE HCL 30 MG CAPSULE.DR PO SCH (09:27)
[2021-02-15] MEDS: FUROSEMIDE 20 MG TABLET PO SCH ×2 (09:28→16:39)
[2021-02-15] MEDS: MIDODRINE HCL (5MG) 5 MG TABLET PO SCH ×3 (09:28→16:39)
[2021-02-15] MEDS: ZINC SULFATE 220 MG CAPSULE PO SCH (09:28)
[2021-02-15] MEDS: DIGOXIN 0.125 MG TABLET PO SCH (09:28)
[2021-02-15] MEDS: SPIRONOLACTONE 25 MG TABLET PO SCH ×2 (09:28→16:39)
[2021-02-15] MEDS: ASCORBIC ACID 500 MG TABLET PO SCH (09:29)
[2021-02-15] MEDS: FLUTICASONE/VILANTEROL 1 EACH BLST.W.DEV IH SCH (09:33)
[2021-02-15 16:00] VITALS: BP 84/43
--- NOTE | 2021-02-15 16:49 | NUR ---
RN NOTE- PTS PROAMATINE, LASIX AND ALDACTONE HELD DUE TO BP- 84/43, HR- 70. AUSCULTATION OF CHEST REVEALS NO RHONCHI NO RALES, NO WHEEZING. BREATH SOUNDS DIMINISHED HOWEVER THROUGHOUT. DISCUSSED W REWARDS CONSULTANT.
--- NOTE | 2021-02-15 19:09 | NUR ---
RN CLOSING NOTE- BP MEDS HELD AT 1700. BP- 84/43. PT LUNGS DIMINISHED ON AUSCULTATION./ PATIENT IN BED, AWAKE, A&O X 4, WITH O2 VIA NC AT AT 2LPM SATURATING WELL AT 96%, IN NO ACUTE DISTRESS NOTED. NO SOB NOTED. NO COMPLAINTS OF PAIN NOTED AT THIS TIME. IV ACCESS ON RAC G#22 PATENT AND FLUSHES WELL. ON CARDIAC DIET. SAFETY PRECAUTIONS OBSERVED: BED ON LOWEST LOCKED POSITION, KEPT SIDE RAILS UP X 2, KEPT CALL LIGHT WITHIN EASY REACH. ON CARDIAC DIET. WILL CONTINUE TO MONITOR PATIENT'S CURRENT CONDITION.
--- NOTE | 2021-02-15 19:30 | NUR ---
MS/RN OPENING NOTE RECEIVED PATIENT RESTING IN BED. AWAKE, ALERT AND ORIENTED X 4. ABLE TO MAKE NEEDS KNOWN. DENIES PAIN AT THIS TIME. CONTINUES ON 2L O2 VIA NC WITH NO S/SX OF RESPIRATORY DISTRESS NOTED. IV ACCESS TO RIGHT FOREARM #22G INTACT, PATENT AND SALINE LOCKED. URINAL EMPTIED WITH CLEAR, YELLOW URINE NOTED. CALL LIGHT WITHIN REACH. ASPIRATION, FALL AND SAFETY PRECAUTIONS MAINTAINED. WILL CONTINUE TO MONITOR.
[2021-02-15 20:01] VITALS: BP 98/56
[2021-02-15] MEDS: ENOXAPARIN SODIUM 40 MG/0.4 ML DISP.SYRIN SQ SCH (20:55)
--- NOTE | 2021-02-15 21:00 | NUR ---
MS/RN NOTE RECEIVED CALL FROM [facility] REGARDING COVID NEGATIVE TEST. COVID RESULT FAXED TO [phone] X 2 WITH BOTH FAXES SHOWING COMPLETE AND FAX SENT.
[2021-02-15] MEDS: hydrOXYzine PAMOATE 25 MG CAPSULE PO SCH (21:02)
[2021-02-15] MEDS: ZOLPIDEM TARTRATE 5 MG TABLET PO PRN (23:54)
--- NOTE | 2021-02-15 23:57 | NUR ---
RN NOTE AMBIEN GIVEN REQUEST BY PATIENT.
[2021-02-16] MEDS: IPRATROPIUM NEB FS 0.5 MG/2.5 ML AMPUL.NEB NEB SCH ×4 (01:27→19:52)
[2021-02-16] MEDS: LEVALBUTEROL HCL NEB 1.25 MG/0.5 ML VIAL.NEB NEB SCH ×4 (01:27→19:52)
--- NOTE | 2021-02-16 06:30 | NUR ---
MS/RN CLOSING NOTE PATIENT CURRENTLY SLEEPING IN BED. ALERT AND ORIENTED X 4. ABLE TO MAKE NEEDS KNOWN. DENIES PAIN AT THIS TIME. CONTINUES ON 2L O2 VIA NC WITH NO S/SX OF RESPIRATORY DISTRESS NOTED. IV ACCESS TO RIGHT FOREARM #22G INTACT, PATENT AND SALINE LOCKED. URINAL EMPTIED WITH CLEAR, YELLOW URINE NOTED. OUTPUT THIS SHIFT WAS 800CC. CALL LIGHT WITHIN REACH. ASPIRATION, FALL AND SAFETY PRECAUTIONS MAINTAINED. WILL ENDORSE PLAN OF CARE TO ONCOMING SHIFT. Addendum: 02/16/21 at 0632 by ROSY BLUE RN IV SITE TO LEFT HAND #18G INTACT, PATENT AND SALINE LOCKED.
[2021-02-16 06:52] LABS: BASOPHILS # (AUTO) 0.1 K/uL (0.0-0.2); BASOPHILS % (AUTO) 1.1 % (0.0-2.0); EOSINOPHILS % (AUTO) 1.8 % (0.0-6.0); HEMATOCRIT 29 % (39-51); HEMOGLOBIN 9.7 g/dL (13.5-17.5); LYMPHOCYTES # (AUTO) 0.7 K/uL (0.8-4.8); LYMPHOCYTES % (AUTO) 14.7 % (20.0-44.0); MEAN CORPUSCULAR HGB CONC 33 g/dl (31.0-36.0); MEAN CORPUSCULAR VOLUME 85 fL (80-96); MONOCYTES # (AUTO) 0.6 K/uL (0.1-1.30); MONOCYTES % (AUTO) 12.9 % (2.0-12.0); NEUTROPHILS # (AUTO) 3.1 K/uL (1.8-8.9); NEUTROPHILS % (AUTO) 69.5 % (43.0-81.0); PLATELET COUNT (AUTO) 143 K/uL (150-450); RED BLOOD CELL COUNT(AUTO) 3.43 MIL/uL (4.5-6.0); WHITE BLOOD COUNT (AUTO) 4.4 K/uL (4.3-11.0)
--- NOTE | 2021-02-16 07:00 | NUR ---
MS RN OPENING NOTES RECEIVE PT AWAKE IN BED AT THIS TIME. AOX4. ABLE TO VERBALIZE NEEDS. NO SOB NOTED, NO S/O OF ANY ACUTE DISTRESS NOTED, NO C/O PAIN AT THIS. BREATHING EVEN AND UNLABORED. PT ON 2LPM OXYGEN VIA NC. IV ACCESS IN LEFT HAND G#22, INTACT, PATENT AND FLUSHING WELL. SAFETY PRECAUTIONS IN PLACE AND MAINTAINED AT ALL TIMES. BED IN LOWEST LOCKED POSITION, HOB ELEVATED, SIDE RAILS UP X2, CALL LIGHT AND TABLE WITHIN REACH. WILL CONTINUE TO MONITOR
[2021-02-16 07:10] LABS: CALCIUM, SERUM 8.2 mg/dL (8.5-10.1); CREATININE 1.1 mg/dL (0.6-1.3); POTASSIUM 4.1 mmol/L (3.5-5.1)
[2021-02-16] MEDS: PANTOPRAZOLE 40 MG TABLET.DR PO SCH (07:56)
[2021-02-16 08:00] VITALS: BP 98/61
[2021-02-16] MEDS: METOPROLOL TARTRATE 25 MG TABLET PO SCH ×2 (09:00→21:00)
[2021-02-16] MEDS: ASCORBIC ACID 500 MG TABLET PO SCH (09:50)
[2021-02-16] MEDS: FLUTICASONE/VILANTEROL 1 EACH BLST.W.DEV IH SCH (09:50)
[2021-02-16] MEDS: CHOLECALCIFEROL 1,000 UNIT TABLET (VIT D3) PO SCH (09:51)
[2021-02-16] MEDS: MIDODRINE HCL (5MG) 5 MG TABLET PO SCH ×2 (09:52→16:26)
[2021-02-16] MEDS: ZINC SULFATE 220 MG CAPSULE PO SCH (09:52)
[2021-02-16] MEDS: DULOXETINE HCL 30 MG CAPSULE.DR PO SCH (09:52)
[2021-02-16] MEDS: SPIRONOLACTONE 25 MG TABLET PO SCH ×2 (09:53→16:26)
[2021-02-16] MEDS: NICOTINE PATCH (21MG) 21 MG PATCH.TD24 TD SCH (09:53)
[2021-02-16] MEDS: DIGOXIN 0.125 MG TABLET PO SCH (09:53)
[2021-02-16] MEDS: FUROSEMIDE 20 MG TABLET PO SCH ×2 (09:53→17:00)
--- NOTE | 2021-02-16 14:39 | NUR ---
REUBEN ([phone]), PT'S RESPONSIBLE GREEN PARTY UPDATED WITH PT'S STATUS. WILL CONTINUE TO MONITOR
[2021-02-16 16:00] VITALS: BP 92/55
--- NOTE | 2021-02-16 16:27 | NUR ---
SPO2 86% ON RA AT THIS TIME. WILL CONTINUE TO MONITOR
--- NOTE | 2021-02-16 17:00 | NUR ---
SPO2 88% ON RA AT THIS TIME. WILL CONTINUE TO MONITOR
--- NOTE | 2021-02-16 19:06 | NUR ---
RN CLOSING NOTES PATIENT AWAKE IN BED AT THIS TIME. REMAINED STABLE THROUGHOUT SHIFT. ALL CARE, NEEDS, AND MEDICATIONS ADMINISTERED PER ORDER. ASPIRATIONS AND SAFETY PRECAUTIONS IN PLACE AND MAINTAINED AT ALL TIMES. BED IN LOWEST LOCKED POSITION, HOB ELEVATED, SIDE RAILS UP X2, CALL LIGHT AND TABLE WITHIN REACH. WILL ENDORSE TO CONTROL CLERK SUBASSEMBLY RN FOR DENIA
--- NOTE | 2021-02-16 19:25 | NUR ---
RN CLOSING NOTES PATIENT AWAKE IN BED AT THIS TIME. REMAINED STABLE THROUGHOUT SHIFT. ALL CARE, NEEDS, AND MEDICATIONS ADMINISTERED PER ORDER. PAIN CONTROL ADMINISTERED, ASPIRATIONS AND SAFETY PRECAUTIONS IN PLACE AND MAINTAINED AT ALL TIMES. BED IN LOWEST LOCKED POSITION, HOB ELEVATED, SIDE RAILS UP X2, CALL LIGHT AND TABLE WITHIN REACH. WILL ENDORSE TO FRONT DESK WORKER RN FOR DENIA
[2021-02-16 20:00] VITALS: BP 108/64
--- NOTE | 2021-02-16 20:12 | NUR ---
MS RN Opening Notes Patient was last seen awake in bed resting. Patient's alert and oriented x4. Patient's on 2L of oxygen/minute via nasal cannula with no respiratory distress noted. Patient's IV access on his left hand was removed due to leakage. Patient has a new IV access on his right hand gauge #20, which is intact, patent, and flushing well. Patient's in no acute distress at this time. Will continue to monitor the patient.
[2021-02-16] MEDS: hydrOXYzine PAMOATE 25 MG CAPSULE PO SCH (21:12)
[2021-02-16] MEDS: ENOXAPARIN SODIUM 40 MG/0.4 ML DISP.SYRIN SQ SCH (21:30)
[2021-02-17] MEDS: ZOLPIDEM TARTRATE 5 MG TABLET PO PRN (00:21)
[2021-02-17] MEDS: IPRATROPIUM NEB FS 0.5 MG/2.5 ML AMPUL.NEB NEB SCH ×2 (01:24→07:35)
[2021-02-17] MEDS: LEVALBUTEROL HCL NEB 1.25 MG/0.5 ML VIAL.NEB NEB SCH ×2 (01:24→07:35)
[2021-02-17 06:42] LABS: BASOPHILS % (AUTO) 1.1 % (0.0-2.0); HEMATOCRIT 30 % (39-51); HEMOGLOBIN 9.7 g/dL (13.5-17.5); LYMPHOCYTES # (AUTO) 0.7 K/uL (0.8-4.8); LYMPHOCYTES % (AUTO) 14.7 % (20.0-44.0); MEAN CORPUSCULAR HGB CONC 33 g/dl (31.0-36.0); MEAN CORPUSCULAR VOLUME 85 fL (80-96); MONOCYTES # (AUTO) 0.6 K/uL (0.1-1.30); MONOCYTES % (AUTO) 12.2 % (2.0-12.0); NEUTROPHILS # (AUTO) 3.2 K/uL (1.8-8.9); PLATELET COUNT (AUTO) 131 K/uL (150-450); RED BLOOD CELL COUNT(AUTO) 3.46 MIL/uL (4.5-6.0); WHITE BLOOD COUNT (AUTO) 4.5 K/uL (4.3-11.0)
--- NOTE | 2021-02-17 06:48 | NUR ---
MS RN Closing Notes Patient was last seen awake in bed resting. Patient's alert and oriented x4. Patient's on 2L of oxygen/minute via nasal cannula with no respiratory distress noted. Patient has a saline lock on his right forearm gauge #20, which is currently intact, patent, and flushing well. Patient's in no acute distress at this time. Will endorse care to the day shift nurse.
[2021-02-17 06:53] LABS: CALCIUM, SERUM 8.4 mg/dL (8.5-10.1); POTASSIUM 4.4 mmol/L (3.5-5.1)
--- NOTE | 2021-02-17 07:10 | NUR ---
MS RN OPENING NOTES RECEIVED PATIENT ON BED. AWAKE, ALERT AND ORIENTED X 4. ABLE TO MAKE NEEDS KNOWN. DENIES PAIN AT THIS TIME. PATIENT IN OXYGEN AT 2LPM VIA NASAL CANULA WITH NO RESPIRATORY DISTRESS. PATIENT SATURATING AT 100% WITH EVEN AND UNLABORED BREATHING. PATIENT OCCASIONALLY REMOVES OXYGEN AND STILL SATURATING AT 96%. PATIENT WITH IV ACCESS TO RIGHT FOREARM #22 G INTACT, PATENT, ON SALINE LOCK. SAFETY MEAURES ENSURED WITH BED LOCKED AND AT LOWEST POSITION AND CALL LIGHT WITHIN REACH AT ALL TIMES. AWILL CONTINUE TO MONITOR PATIENT.
[2021-02-17 08:00] VITALS: BP 92/60
--- NOTE | 2021-02-17 08:45 | NUR ---
MS RN NOTE PATIENT SEEN BY DR. ALMEIDA WITH ORDERS FOR DISCHARGE. PATIENT VERBALIZED UNDERSTANDING. PATIENT WITH GISELA ALEXIS WITH [facility]AN[facility] VICE PRESIDENT NADJA TO TALK TO GISELA ALEXIS REGARDING DISCHARGE ARRANGEMENTS. PATIENT HEALTH TEACHING DONE REGARDING DISCHARGE ORDERS, DISEASE MANAGEMENT, MEDICATIONS AND OTHER HEALTH TEACHINGS. PATIENT VERBALIZED UNDERSTANDING AND APPRECIATION. AWAITING PICK-UP BY DPOA. WILL CONTINUE TO MONITOR PATIENT.
[2021-02-17] MEDS: FUROSEMIDE 20 MG TABLET PO SCH (08:48)
[2021-02-17] MEDS: ASCORBIC ACID 500 MG TABLET PO SCH (08:49)
[2021-02-17] MEDS: MIDODRINE HCL (5MG) 5 MG TABLET PO SCH (08:49)
[2021-02-17 08:50] VITALS: BP 92/60
[2021-02-17] MEDS: PANTOPRAZOLE 40 MG TABLET.DR PO SCH (08:50)
[2021-02-17] MEDS: CHOLECALCIFEROL 1,000 UNIT TABLET (VIT D3) PO SCH (08:50)
[2021-02-17] MEDS: METOPROLOL TARTRATE 25 MG TABLET PO SCH (08:50)
[2021-02-17] MEDS: SPIRONOLACTONE 25 MG TABLET PO SCH (08:50)
[2021-02-17] MEDS: ZINC SULFATE 220 MG CAPSULE PO SCH (08:51)
[2021-02-17] MEDS: DULOXETINE HCL 30 MG CAPSULE.DR PO SCH (08:51)
[2021-02-17] MEDS: DIGOXIN 0.125 MG TABLET PO SCH (08:51)
[2021-02-17] MEDS: NICOTINE PATCH (21MG) 21 MG PATCH.TD24 TD SCH (08:51)
[2021-02-17] MEDS: FLUTICASONE/VILANTEROL 1 EACH BLST.W.DEV IH SCH (08:55)
--- NOTE | 2021-02-17 10:00 | NUR ---
MS RN NOTE RECEIVED CALL FROM CAR TRIMMER NADJA. PATIENT WILL BE PICKED UP BY GISELA ALEXIS AT AROUND 1100. PATIENT REQUESTED TO REMOVE IV ACCESS. IV ACCESS REMOVED AND COVERED WITH DRY DRESSING. TOLERATED WELL. WILL CONTINUE TO MONITOR.
--- NOTE | 2021-02-17 11:15 | NUR ---
MS RN NOTE PATIENT PICKED UP BY GISELA ALEXIS, ACCOMPANIED BY HEAT TREATER HEAD TO LOBBY VIA WHEELCHAIR, IN STABLE CONDITION. DISCHARGE PAPERS AND INSTURCTIONS SENT WITH THE PATIENT. ENDORSED ACCORDINGLY.
== END 2021-02-17 11:15 | disposition home health service (06) | DRG 193 ==
LOC: ER 14:32 → TELE 20:56 → TELE-TD 02-04 02:21 → TELE1 02-08 08:58 → TELE 02-08 20:39 → MED 02-10 09:16
PROVIDERS: ADMIT Student in an Organized Health Care Education/Training Program; ATTEND Family Medicine
PROC: 0W993ZZ Drainage of Right Pleural Cavity, Percutaneous Approach (ICD-10-PCS; principal; 2021-02-04)
PROC: 0W9G3ZZ Drainage of Peritoneal Cavity, Percutaneous Approach (ICD-10-PCS; 2021-02-06)
DX: J15.9 Unspecified bacterial pneumonia (principal); J96.01 Acute respiratory failure with hypoxia; N17.0 Acute kidney failure with tubular necrosis; J44.1 Chronic obstructive pulmonary disease with (acute) exacerbation; J44.0 Chronic obstructive pulmonary disease with (acute) lower respiratory infection; E44.0 Moderate protein-calorie malnutrition; E87.2 Acidosis; J90 Pleural effusion, not elsewhere classified; J98.11 Atelectasis; E22.2 Syndrome of inappropriate secretion of antidiuretic hormone; D61.818 Other pancytopenia; K76.6 Portal hypertension; J94.8 Other specified pleural conditions; K21.9 Gastro-esophageal reflux disease without esophagitis; E78.5 Hyperlipidemia, unspecified; Z20.822 Contact with and (suspected) exposure to COVID-19; I48.91 Unspecified atrial fibrillation; D63.8 Anemia in other chronic diseases classified elsewhere; I73.9 Peripheral vascular disease, unspecified; F10.10 Alcohol abuse, uncomplicated; F29 Unspecified psychosis not due to a substance or known physiological condition; F32.9 Major depressive disorder, single episode, unspecified; E86.1 Hypovolemia; F41.9 Anxiety disorder, unspecified; Z79.51 Long term (current) use of inhaled steroids; Z79.899 Other long term (current) drug therapy; R74.01 Elevation of levels of liver transaminase levels; M20.42 Other hammer toe(s) (acquired), left foot; M20.41 Other hammer toe(s) (acquired), right foot; Y90.9 Presence of alcohol in blood, level not specified; Z72.0 Tobacco use; K70.31 Alcoholic cirrhosis of liver with ascites; N13.9 Obstructive and reflux uropathy, unspecified; L60.3 Nail dystrophy; M62.562 Muscle wasting and atrophy, not elsewhere classified, left lower leg; M62.561 Muscle wasting and atrophy, not elsewhere classified, right lower leg; E61.1 Iron deficiency; I70.0 Atherosclerosis of aorta; I10 Essential (primary) hypertension; N28.89 Other specified disorders of kidney and ureter; S91.112A Laceration without foreign body of left great toe without damage to nail, initial encounter; Y92.9 Unspecified place or not applicable; W22.8XXA Striking against or struck by other objects, initial encounter; K64.9 Unspecified hemorrhoids; K29.70 Gastritis, unspecified, without bleeding; K20.90 Esophagitis, unspecified without bleeding
CPT/HCPCS: 36415; 71045-TC; 71250-TC; 72195-TC; 72196-TC; 74181-TC; 74182-TC; 76705-TC; 76770-TC; 76942-TC; 80048-TC; 80053-TC; 80074; 80076-TC; 80162-TC; 82272-TC; 82550-TC; 82728-TC; 82784; 83540-TC; 83605-TC; 83735-TC; 83880; 84100-TC; 84155; 84165; 84443-TC; 84484-TC; 85025-TC; 85610-TC; 85730-TC; 86140-TC; 86225; 86235; 86334; 86431-TC; 87040-TC; 87070-TC; 87081-TC; 89051-TC; 93307-TC; 94799-TC; 97112-TC; 97116-TC; 97530-TC; C9113; C9803; G0378; J0456; J0696; J1650; J1940; J2060; J2916; J2920; J2930; J3490; J7030; J7050; J7060; Q0177